=== PATIENT | male | born 1955 | race Caucasian/White ===

== ENCOUNTER 2017-10-01 14:08 | Outpatient (CLI) | payer MEDICARE, MEDICAID | END 2017-10-01 14:09 | disposition critical access hospital (66) | LOC: EMS 14:08 | PROVIDERS: ATTEND Surgery | DX: R10.9 Unspecified abdominal pain (principal) | CPT/HCPCS: A0425; A0429 ==

== ENCOUNTER 2017-10-01 14:46 | Emergency (ER) | payer MEDICARE, MEDICAID ==
--- NOTE | 2017-10-01 14:58 | ED Physician Documentation ---
PD HPI ABD PAIN - Stated complaint Stated Complaint: ABD PX - Chief complaint Chief Complaint: Abd Pain - History obtained from History obtained from: Patient, EMS - History of Present Illness Timing - onset: Enter time (399), Today Timing - duration: Hours Timing - details: Abrupt onset, Still present Quality: Sharp, Fullness/distended, Pain Location: Suprapubic Radiation: Lower back Improved by: Laying still Worsened by: Moving, Breathing, Position, Palpation Associated symptoms: Nausea, Constipation Similar symptoms before: Diagnosis (constipation) Recently seen: Not recently seen - Additional information Additional information: 62 y/o male with a history of MS has developed acute lower abdominal pain and feels he might be obstructed. He cannot have a bowel movement and is only getting out small amounts with urination. Review of Systems Constitutional: denies: Fever Eyes: denies: Decreased vision Ears: denies: Ear pain Nose: denies: Congestion Throat: denies: Sore throat Cardiac: denies: Chest pain / pressure Respiratory: denies: Dyspnea, Cough GI: reports: Abdominal Pain, Nausea, Constipation. denies: Vomiting, Diarrhea : reports: Frequency, Unable to Void. denies: Dysuria Skin: denies: Rash Musculoskeletal: denies: Neck pain, Back pain, Extremity pain PD PAST MEDICAL HISTORY - Past Medical History Neuro: Multiple sclerosis HEENT: Glaucoma Musculoskeletal: Chronic back pain - Past Surgical History Past Surgical History: No - Present Medications Home Medications: Ambulatory Orders Medication Instructions Recorded Confirmed Timolol 0.5% Ophth Drops [Timoptic 1 drops OPTH BID 12/22/13 01/13/14 0.5% Ophth Drops] Ca Cmb No.1/Vit D3/B-6/FA/B12 3 tab PO DAILY 02/24/14 02/24/14 [Vitamin D3 1,000 Unit Tablet] Primapexole 12/23/15 - Allergies Allergies/Adverse Reactions: Allergies Allergy/AdvReac Type Severity Reaction Status Date / Time No Known Drug Allergies Allergy Verified 01/13/14 22:18 - Social History Does the pt smoke?: Yes Smoking Status: Current every day smoker Does the pt drink ETOH?: No Does the pt have substance abuse?: No - Immunizations Immunizations are current?: Yes - POLST Patient has POLST: Yes PD ED PE NORMAL - Vitals Vital signs reviewed: Yes (hypertensive ) - General General: Alert and oriented X 3, No acute distress, Well developed/nourished, Other (Thin appearing male in no distress motionless from the waist down. ) - HEENT HEENT: Atraumatic, PERRL, EOMI - Neck Neck: Supple, no meningeal sign - Respiratory Respiratory: No respiratory distress - Abdomen Abdomen: Soft, Other (There is a firm palpable bladder that is tender and extends to near the umbilicus. ) - Back Back: No CVA TTP, No spinal TTP - Derm Derm: Normal color, Warm and dry, No rash - Extremities Extremities: No deformity, No edema, Other (thin motionless LE. ) - Neuro Neuro: Alert and oriented X 3, Normal speech Eye Opening: Spontaneous Motor: Obeys Commands Verbal: Oriented GCS Score: 15 - Psych Psych: Normal mood, Normal affect Results - Vitals Vitals: Vital Signs - 24 hr 10/01/17 14:48 Temperature 36.4 C L Heart Rate 74 Respiratory 16 Rate Blood Pressure 151/96 H O2 Saturation 95 Oxygen O2 Source Room air - Labs Labs: Laboratory Tests 10/01/17 15:42 Urine Color YELLOW Urine Clarity HAZY Urine pH 6.5 Ur Specific [place] 1.010 Urine Protein NEGATIVE Urine Glucose (UA) NEGATIVE Urine Ketones NEGATIVE Urine Occult Blood SMALL H Urine Nitrite NEGATIVE Urine Bilirubin NEGATIVE Urine Urobilinogen 0.2 (NORMAL) Ur Leukocyte Esterase NEGATIVE Urine RBC 0-5 Urine WBC 0-3 Ur Squamous Epith Cells NONE SEEN Amorphous Sediment Rare Urine Bacteria None Seen Ur Microscopic Review INDICATED Urine Culture Comments NOT INDICATED Procedures - Bedside sono Bedside sono by EMP: with the use of bedside ultrasound the bladder is imaged and is full and tender. PD MEDICAL DECISION MAKING - ED course Complexity details: reviewed old records, reviewed results, re-evaluated patient , considered differential, d/w patient ED course: 62 y/o male with MS has developed acute urinary retention and has relief of pain with placement of a carey catheter. His urine is clear and he is able to get more stool out. He is given an enema with more stool out as well. I have encouraged him to try an enema on a regular basis for reflex evacuation. He will need the carey in for 1-2 weeks and [facility] Departure - Departure Disposition: 01 Home, Self Care Clinical Impression: Acute urinary retention Constipation Qualifiers: Constipation type: unspecified constipation type Qualified Code(s): K59.00 - Constipation, unspecified Condition: Stable Instructions: ED Constipation, ED Retention Urinary Male Follow-Up: Your, doctor at the [place] [Other] Comments: Leave the catheter in place and follow up at the [place] with urology in 1-2 weeks for a voiding trial. Try an enema to train the colon for hydro-distention reflex evacuation.
[2017-10-01 15:45] LABS: BILIRUBIN,URINE NEGATIVE (NEGATIVE); GLUCOSE, URINE (UA) NEGATIVE (NEGATIVE); KETONES,URINE (UA) NEGATIVE (NEGATIVE); LEUKOCYTE ESTERASE, URINE NEGATIVE (NEGATIVE); NITRITE,URINE NEGATIVE (NEGATIVE); OCCULT BLOOD,URINE SMALL (NEGATIVE); PH,URINE 6.5 PH (5.0-7.5); PROTEIN,URINE NEGATIVE (NEGATIVE); UROBILINOGEN,URINE 0.2 (NORMAL) E.U./dL (NORMAL)
[2017-10-01 16:12] LABS: CLARITY,URINE HAZY (CLEAR)
[2017-10-01 16:13] LABS: AMORPHOUS SEDIMENT,UR Rare /LPF; BACTERIA,URINE None Seen /HPF (None Seen); RBC,URINE 0-5 /HPF (0-5); SQUAMOUS EPITHELIAL CELL,UR NONE SEEN (<= Few)
[2017-10-01 16:53] VITALS: BP 113/82
== END 2017-10-01 19:50 | disposition home or self-care (01) ==
LOC: ED 14:46
DX: R33.9 Retention of urine, unspecified (principal); K59.00 Constipation, unspecified; G35 Multiple sclerosis; F17.200 Nicotine dependence, unspecified, uncomplicated
CPT/HCPCS: 51702; 81001; 81003; 87086; 99283; 99284

== ENCOUNTER 2017-10-01 20:00 | Outpatient (CLI) | payer MEDICARE, MEDICAID | END 2017-10-01 20:01 | disposition home or self-care (01) | LOC: EMS 20:00 | PROVIDERS: ATTEND Surgery | DX: K59.00 Constipation, unspecified (principal); R33.9 Retention of urine, unspecified | CPT/HCPCS: A0425; A0429 ==

== ENCOUNTER 2018-09-02 01:25 | Outpatient (CLI) | payer OTHER | END 2018-09-02 01:26 | disposition critical access hospital (66) | LOC: EMS 01:25 | PROVIDERS: ATTEND Surgery | DX: R10.9 Unspecified abdominal pain (principal); M54.9 Dorsalgia, unspecified; Z99.3 Dependence on wheelchair | CPT/HCPCS: A0425; A0429 ==

== ENCOUNTER 2018-09-02 01:44 | Emergency (ER) | payer OTHER ==
[2018-09-02] MEDS ORDERED: SODIUM CHLORIDE 0.9% 1,000 ML IV STA (02:02)
[2018-09-02] MEDS ORDERED: ONDANSETRON 4 MG/2 ML VIAL IVP STA (02:02)
[2018-09-02] MEDS ORDERED: MORPHINE 10 MG/ML VIAL IVP STA (02:02)
[2018-09-02] MEDS ORDERED: IOPAMIDOL-300 100 ML VIAL ONE (02:15)
[2018-09-02 02:16] LABS: BASOPHILS # (AUTO) 0.2 10^3/uL (0.0-0.1); BASOPHILS % (AUTO) 1.1 %; EOSINOPHILS # (AUTO) 0.1 10^3/uL (0.0-0.7); EOSINOPHILS % (AUTO) 0.5 %; HGB - HEMOGLOBIN 16.3 g/dL (14.0-18.0); LYMPHOCYTES # (AUTO) 1.6 10^3/uL (1.5-3.5); LYMPHOCYTES % (AUTO) 9.5 %; MEAN CORPUSCULAR HEMOGLOBIN 30.8 pg (27.0-31.0); MEAN PLATELET VOLUME 8.3 fL (7.4-11.4); MONOCYTES # (AUTO) 0.8 10^3/uL (0.0-1.0); MONOCYTES % (AUTO) 4.7 %; NEUTROPHILS # (AUTO) 14.5 10^3/uL (1.5-6.6); NEUTROPHILS % (AUTO) 84.2 %; PLT - PLATELET COUNT 200 10^3/uL (130-450); RED BLOOD COUNT 5.29 10^6/uL (4.70-6.10); RED CELL DISTRIBUTION WIDTH 14.8 % (12.0-15.0); WHITE BLOOD COUNT 17.2 x10^3/uL (4.8-10.8)
[2018-09-02 02:29] LABS: ALBUMIN 4.2 g/dL (3.2-5.5); ALBUMIN/GLOBULIN RATIO 1.3 (1.0-2.2); CALCIUM 9.2 mg/dL (8.5-10.3); CREATININE 1.1 mg/dL (0.6-1.2); TOTAL PROTEIN 7.5 g/dL (6.7-8.2)
[2018-09-02] MEDS ORDERED: IOPAMIDOL-300 100 ML VIAL IVP ONE (03:06)
--- NOTE | 2018-09-02 03:28 | CT Report ---
Reason: abd pain radiating to back Procedure Date: 09/02/2018 Accession Number: [id number] / [id number] Procedure: CT - Abdomen/Pelvis W CPT Code: FULL RESULT: EXAM: CT ABDOMEN AND PELVIS EXAM DATE: 09/02/2018 03:08 AM. CLINICAL HISTORY: Abd pain radiating to back. COMPARISONS: ABDOMEN/PELVIS W/ 12/23/2015 6:40 PM. TECHNIQUE: Routine helical CT imaging was performed through the abdomen and pelvis. IV contrast: ISOVUE 300 100mL. Enteric contrast: No. Reconstructions: Coronal and sagittal. In accordance with CT protocol optimization, one or more of the following dose reduction techniques were utilized for this exam: automated exposure control, adjustment of mA and/or KV based on patient size, or use of iterative reconstructive technique. FINDINGS: Lung Bases: Stable right lower lobe airspace opacity. No effusion or pneumothorax. Liver: Normal. No masses. Gallbladder/Bile Ducts: Unremarkable. Spleen: Normal. Pancreas: Normal. Adrenal Glands: Normal. Kidneys: Normal. No masses or hydronephrosis. Peritoneal Cavity/Bowel: Normal. No free fluid, free air or adenopathy. No masses or acute inflammatory process. The appendix is well visualized and normal. Pelvic Organs: Normal. The bladder and visualized pelvic organs are within normal limits. 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 Bones: No significant abnormality. Other: None. IMPRESSION: Stable atherosclerotic disease, with stenosis of the distal abdominal aorta and occlusion of the left common iliac artery, with distal reconstitution. No evident etiology for patient's abdominal pain. RADIA
--- NOTE | 2018-09-02 03:54 | ED Physician Documentation ---
PD HPI ABD PAIN - Stated complaint Stated Complaint: ABD PAIN - Chief complaint Chief Complaint: Back Pain - History obtained from History obtained from: Patient - History of Present Illness Timing - onset: How many hours ago (2) Timing - duration: Hours (2) Timing - details: Gradual onset Pain level max: 3 Pain level now: 3 Severity Comments: mild Quality: Cramping Location: Epigastric Radiation: Lower back Improved by: Laying still Worsened by: Eating Associated symptoms: Nausea Review of Systems Ten Systems: 10 systems reviewed and negative Constitutional: reports: Reviewed and negative Eyes: reports: Reviewed and negative Ears: reports: Reviewed and negative Nose: reports: Reviewed and negative Throat: reports: Reviewed and negative Cardiac: reports: Reviewed and negative Respiratory: reports: Reviewed and negative GI: reports: Reviewed and negative : reports: Reviewed and negative Skin: reports: Reviewed and negative Musculoskeletal: reports: Reviewed and negative Neurologic: reports: Reviewed and negative Psychiatric: reports: Reviewed and negative Endocrine: reports: Reviewed and negative Immunocompromised: reports: Reviewed and negative PD PAST MEDICAL HISTORY - Past Medical History HEENT: Glaucoma Musculoskeletal: Chronic back pain Other Past Medical History: Reviewed and not pertinent - Past Surgical History Past Surgical History: No Other past surgical history: Reviewed and not pertinent - Present Medications Home Medications: Ambulatory Orders Medication Instructions Recorded Confirmed Timolol 0.5% Ophth Drops [Timoptic 1 drops OPTH BID 12/22/13 01/13/14 0.5% Ophth Drops] Ca Cmb No.1/Vit D3/B-6/FA/B12 3 tab PO DAILY 02/24/14 02/24/14 [Vitamin D3 1,000 Unit Tablet] Primapexole 12/23/15 - Allergies Allergies/Adverse Reactions: Allergies Allergy/AdvReac Type Severity Reaction Status Date / Time No Known Drug Allergies Allergy Verified 01/13/14 22:18 - Social History Does the pt smoke?: Yes Smoking Status: Current every day smoker Does the pt drink ETOH?: No Does the pt have substance abuse?: No - Family History Family history: reports: Other (Reviewed and not pertinent) - Immunizations Immunizations are current?: Yes - POLST Patient has POLST: Yes PD ED PE NORMAL - Vitals Vital signs reviewed: Yes - General General: Alert and oriented X 3, No acute distress - HEENT HEENT: PERRL - Neck Neck: Supple, no meningeal sign - Cardiac Cardiac: RRR, No murmur - Respiratory Respiratory: Clear bilaterally - Abdomen Abdomen: Normal bowel sounds, Soft, Non tender, Non distended - Derm Derm: Warm and dry - Extremities Extremities: No deformity - Neuro Neuro: Alert and oriented X 3 - Psych Psych: Normal mood, Normal affect Results - Vitals Vitals: Vital Signs - 24 hr 09/02/18 01:47 Temperature 36.2 C L Heart Rate 61 Respiratory 18 Rate Blood Pressure 156/83 H O2 Saturation 98 Oxygen O2 Source Room air - EKG (time done) 0206 Rate: Rate (enter#) (65) Rhythm: NSR [place]: Normal Intervals: Normal OK. No: Prolonged QT QRS: Normal Ischemia: Normal ST segments. No: T wave inversion - Labs Labs: Laboratory Tests 09/02/18 09/02/18 09/02/18 02:05 02:05 02:05 WBC 17.2 H RBC 5.29 Hgb 16.3 Hct 46.5 MCV 88.0 MCH 30.8 MCHC 35.0 RDW 14.8 Plt Count 200 MPV 8.3 Neut # (Auto) 14.5 H Lymph # (Auto) 1.6 [place] # (Auto) 0.8 Eos # (Auto) 0.1 Baso # (Auto) 0.2 H Absolute Nucleated RBC 0.00 Nucleated RBC % 0.0 Sodium 140 Potassium 3.5 Chloride 104 Carbon Dioxide 26 Anion Gap 10.0 BUN 13 Creatinine 1.1 Estimated GFR (MDRD) 67 L Glucose 111 H Calcium 9.2 Total Bilirubin 1.0 AST 59 H ALT 40 Alkaline Phosphatase 103 Troponin I < 0.04 Total Protein 7.5 Albumin 4.2 Globulin 3.3 Albumin/Globulin Ratio 1.3 Lipase 51 - Rads (name of study) CT ABD PELV Radiology: Final report received, See rad report PD MEDICAL DECISION MAKING - ED course Complexity details: reviewed results, re-evaluated patient, considered differential, d/w patient ED course: 63-year-old male with abdominal pain radiating to the back. Labs, EKG, abdominal CT scan were unremarkable for acute etiology. Return precautions reviewed and patient will follow-up with PCP. Departure - Departure Disposition: 01 Home, Self Care Clinical Impression: Abdominal pain Qualifiers: Abdominal location: generalized Qualified Code(s): R10.84 - Generalized abdominal pain Instructions: ED Abdominal Pain Unkn Cause Follow-Up: Tarleton,Humble D, MD [Primary Care Provider] - Comments: Follow-up with PCP within 24 hours. Return with worsening symptoms.
[2018-09-02 04:12] VITALS: BP 119/74
== END 2018-09-02 04:52 | disposition home or self-care (01) ==
LOC: EDUNIT# → ED 01:44
DX: R10.84 Generalized abdominal pain (principal); F17.200 Nicotine dependence, unspecified, uncomplicated
CPT/HCPCS: 36415; 74177; 80053; 83690; 84484; 85025; 93005; 96361; 96374; 99283; Q9967

== ENCOUNTER 2018-09-02 04:56 | Outpatient (CLI) | payer OTHER | END 2018-09-02 04:57 | disposition home or self-care (01) | LOC: EMS 04:56 | PROVIDERS: ATTEND Surgery | DX: Z74.01 Bed confinement status (principal) | CPT/HCPCS: A0425; A0428 ==

== ENCOUNTER 2022-12-11 15:24 | Outpatient (CLI) | payer OTHER | END 2022-12-11 23:59 | disposition critical access hospital (66) | LOC: EMS 15:24 | DX: R10.31 Right lower quadrant pain (principal); R39.89 Other symptoms and signs involving the genitourinary system | CPT/HCPCS: A0425; A0429 ==

== ENCOUNTER 2022-12-11 15:47 | Emergency (ER) | payer OTHER ==
--- NOTE | 2022-12-11 15:54 | ED Physician Documentation ---
PD HPI LOWER EXT INJURY - Stated complaint Stated Complaint: GROIN PX - History obtained from History obtained from: Patient - Additional information Additional information: 67-year-old gentleman with history of MS causing inability to walk for the most part, uses a power chair and has help at home. He has had about 4 weeks of increasing pain of the right groin. It is located inferior to the inguinal ligaments kind of medially up near the insertion of the Gracilis. It is moderate at rest but worse when he moves or when his restless leg syndrome flares up. There is no injury. He is never had anything like this before. PD PAST MEDICAL HISTORY - Past Medical History HEENT: Glaucoma Musculoskeletal: Chronic back pain - Past Surgical History Past Surgical History: No - Present Medications Home Medications: Ambulatory Orders Medication Instructions Recorded Confirmed Timolol 0.5% Ophth Drops [Timoptic 1 drops OPTH BID 12/22/13 01/13/14 0.5% Ophth Drops] Ca Cmb No.1/Vit D3/B-6/FA/B12 3 tab PO DAILY 02/24/14 02/24/14 [Vitamin D3 1,000 Unit Tablet] Primapexole 12/23/15 Ciprofloxacin [Cipro] 250 mg PO Q12H #10 tablet 12/11/22 HYDROcod/ACETAM 5/325 [[place] 5/325] 1 - 2 tab PO Q6H PRN #10 tablet 12/11/22 - Allergies Allergies/Adverse Reactions: Allergies Allergy/AdvReac Type Severity Reaction Status Date / Time No Known Drug Allergies Allergy Verified 01/13/14 22:18 - Social History Does the pt smoke?: Yes Smoking Status: Current every day smoker Does the pt drink ETOH?: No Does the pt have substance abuse?: No - Immunizations Immunizations are current?: Yes - POLST Patient has POLST: Yes PD ED PE NORMAL - Vitals Vital signs reviewed: Yes - General General: Alert and oriented X 3, No acute distress - Abdomen Abdomen: Normal bowel sounds, Soft, Non tender - Back Back: Other (There is focal tenderness of the upper medial thigh near the insertion of the gracilis. No skin breakdown or rash. No hernia mass. Internal and external rotation of the hip itself is relatively nonpainful.) - Neuro Neuro: Alert and oriented X 3, Normal speech Results - Vitals Vitals: Vital Signs - 24 hr 12/11/22 15:51 Temperature 36.9 C Heart Rate 84 Respiratory 16 Rate Blood Pressure 166/106 H O2 Saturation 96 Oxygen O2 Source Room air - Labs Labs: Laboratory Tests 12/11/22 12/11/22 12/11/22 16:07 16:15 16:15 WBC 15.0 H RBC 5.54 Hgb 15.9 Hct 48.4 MCV 87.4 MCH 28.7 MCHC 32.9 RDW 14.3 Plt Count 267 MPV 9.3 Neut # (Auto) 11.9 H Lymph # (Auto) 2.1 [place] # (Auto) 0.8 Eos # (Auto) 0.1 Baso # (Auto) 0.1 Absolute Nucleated RBC 0.00 Nucleated RBC % 0.0 Sodium 136 Potassium 2.8 L Chloride 98 L Carbon Dioxide 30 Anion Gap 8.0 BUN 15 Creatinine 1.2 Estimated GFR (MDRD) 60 L Glucose 99 Calcium 8.8 Urine Color YELLOW Urine Clarity HAZY Urine pH 7.0 Ur Specific [place] 1.010 Urine Protein TRACE Urine Glucose (UA) NEGATIVE Urine Ketones NEGATIVE Urine Occult Blood TRACE-INTA Urine Nitrite POSITIVE H Urine Bilirubin NEGATIVE Urine Urobilinogen 0.2 (NORMAL) Ur Leukocyte Esterase LARGE H Urine RBC 0-5 Urine WBC >25 H Ur Squamous Epith Cells NONE SEEN Urine Bacteria Moderate H Ur Microscopic Review INDICATED Urine Culture Comments INDICATED PD Medical Decision Making - ED course ED course: 67-year-old gentleman who has mobility issues related to multiple sclerosis presents 4 weeks of groin pain that is worse with movements. He is focally tender at the insertion of the gracilis muscle. There is no tenderness over the femoral vascular chair anteriorly. DVT is considered but there is really no swelling in the history and physical is otherwise not consistent with that. Right hip x-ray was negative. Blood work does show an elevated white blood cell count, modest hypokalemia and he does have evidence of a urinary infection. Given the white count this will be treated with antibiotics. I do wonder if the pain sensation might be obfuscated by his MS and the bladder infection may be the primary issue. Close follow-up was advised and potassium was repleted orally here. Departure - Departure Disposition: 01 Home, Self Care Clinical Impression: Hip pain, right Urinary tract infection Qualifiers: Urinary tract infection type: acute cystitis Hematuria presence: without hematuria Qualified Code(s): N30.00 - Acute cystitis without hematuria Condition: Good Record reviewed to determine appropriate education?: Yes Instructions: ED Acute Pain UKO, ED UTI Cystitis Male Prescriptions: Ciprofloxacin [Cipro] 250 mg PO Q12H #10 tablet HYDROcod/ACETAM 5/325 [[place] 5/325] 1 - 2 tab PO Q6H PRN #10 tablet PRN Reason: Pain Comments: You are found today to have a bladder infection with elevated white blood cell count. We are treating this with antibiotics. Also your potassium was low. The pain may or may not be related to these issues, sometimes it is hard to tell in people with multiple sclerosis. That said if the pain does not resolved with the treatment of the urinary infection, please follow-up with your primary care physician for further evaluation and treatment. Return for new or worsening symptoms. We will perform a urine culture and if a resistant organism is identified we will call you to change antibiotics. [facility] [place]. I am prescribing a short course of narcotic pain medication for you. These are potentially dangerous and addictive medications that should be used carefully. These medications may constipate you. Take an [id number] stool softener (docusate) twice daily with plenty of water while taking these medications. If you go 24 hours without a bowel movement, take [id number] miralax, per package instructions. Do not drink or drive while taking these medications. If you received narcotic or sedating medications while in the emergency department, do not drive for 24 hours. Store this medication in a safe, secure place and out of reach of children. It is a violation of federal law to give or sell this medication to another person or to use in a manner other than prescribed. The ED will not refill narcotic prescriptions, including prescriptions lost or stolen. To dispose of unwanted medications: 1. [facility] provides a drop box for medication in pill form only (no liquids) 8:00 am to 4:30 p.m. Friday-Friday in the lobby of the [facility], [address] [place] [address]. Empty pills into ziplock bag before disposal. Call [phone] for information. 2.BackTrack is a free service available to all [facility] residents. Go to [email or web address] Note that many narcotic pain relievers also contain Tylenol/acetaminophen. Please ensure that your total dose of acetaminophen from all sources does not exceed 3 g (3000 mg) per day.
[2022-12-11 16:21] LABS: BASOPHILS # (AUTO) 0.1 10^3/uL (0.0-0.1); BASOPHILS % (AUTO) 0.6 %; EOSINOPHILS # (AUTO) 0.1 10^3/uL (0.0-0.7); EOSINOPHILS % (AUTO) 0.7 %; HCT - HEMATOCRIT 48.4 % (42.0-52.0); HGB - HEMOGLOBIN 15.9 g/dL (14.0-18.0); LYMPHOCYTES # (AUTO) 2.1 10^3/uL (1.5-3.5); LYMPHOCYTES % (AUTO) 13.8 %; MEAN CORPUSCULAR HEMOGLOBIN 28.7 pg (27.0-31.0); MEAN CORPUSCULAR HGB CONC 32.9 g/dL (32.0-36.0); MEAN CORPUSCULAR VOLUME 87.4 fL (80.0-94.0); MEAN PLATELET VOLUME 9.3 fL (7.4-11.4); MONOCYTES # (AUTO) 0.8 10^3/uL (0.0-1.0); MONOCYTES % (AUTO) 5.1 %; NEUTROPHILS # (AUTO) 11.9 10^3/uL (1.5-6.6); NEUTROPHILS % (AUTO) 79.4 %; PLT - PLATELET COUNT 267 10^3/uL (130-450); RED BLOOD COUNT 5.54 10^6/uL (4.70-6.10); RED CELL DISTRIBUTION WIDTH 14.3 % (12.0-15.0)
[2022-12-11 16:22] LABS: BILIRUBIN,URINE NEGATIVE (NEGATIVE); GLUCOSE, URINE (UA) NEGATIVE (NEGATIVE); KETONES,URINE (UA) NEGATIVE (NEGATIVE); LEUKOCYTE ESTERASE, URINE LARGE (NEGATIVE); NITRITE,URINE POSITIVE (NEGATIVE); OCCULT BLOOD,URINE TRACE-INTA (NEGATIVE); PROTEIN,URINE TRACE mg/dL (NEGATIVE); UROBILINOGEN,URINE 0.2 (NORMAL) E.U./dL (NORMAL)
[2022-12-11 16:23] LABS: CLARITY,URINE HAZY (CLEAR)
[2022-12-11 16:30] LABS: CALCIUM 8.8 mg/dL (8.5-10.3); CREATININE 1.2 mg/dL (0.6-1.2); POTASSIUM 2.8 mmol/L (3.5-5.0)
[2022-12-11 16:31] LABS: BACTERIA,URINE Moderate /HPF (None Seen); RBC,URINE 0-5 /HPF (0-5); SQUAMOUS EPITHELIAL CELL,UR NONE SEEN (<= Few); WBC,URINE >25 /HPF (0-3)
--- NOTE | 2022-12-11 16:45 | XRAY Report ---
PROCEDURE: Hip w/Pelvis 2-3V RT INDICATIONS: hip pain TECHNIQUE: AP pelvis with lateral view(s) of the right hip(s). COMPARISON: None. FINDINGS: Bones: No fractures or dislocations. No suspicious bony lesions. Soft tissues: No suspicious soft tissue calcifications or masses. IMPRESSION: No acute bony abnormality. Reviewed by: Karan Oro on 12/11/2022 4:43 PM PDT Approved by: Karan Oro on 12/11/2022 4:43 PM PDT Station ID: [id number]
[2022-12-11] MEDS ORDERED: CIPROFLOXACIN 250 MG TABLET PO STA (16:57)
[2022-12-11] MEDS ORDERED: HYDROcod/ACETAM 5/325 MG TABLET PO STA (16:58)
[2022-12-11] MEDS ORDERED: POTASSIUM BICARB 25 MEQ TABLET PO STA (17:00)
[2022-12-11 21:09] VITALS: BP 205/96
== END 2022-12-11 21:05 | disposition home or self-care (01) ==
LOC: EDUNIT# → ED 15:47
DX: M25.551 Pain in right hip (principal); N30.00 Acute cystitis without hematuria; G35 Multiple sclerosis; E87.6 Hypokalemia; F17.200 Nicotine dependence, unspecified, uncomplicated
CPT/HCPCS: 36415; 73502; 80048; 81001; 85025; 87086; 99283; 99284; A9270; 81003

== ENCOUNTER 2022-12-11 21:21 | Outpatient (CLI) | payer OTHER | END 2022-12-11 21:22 | disposition home or self-care (01) | LOC: EMS 21:21 | PROVIDERS: ATTEND Emergency Medicine | DX: N39.0 Urinary tract infection, site not specified (principal); Z74.01 Bed confinement status; G82.20 Paraplegia, unspecified; G35 Multiple sclerosis | CPT/HCPCS: A0425; A0428 ==

== ENCOUNTER 2022-12-16 15:06 | Emergency (ER) | payer OTHER ==
--- NOTE | 2022-12-16 15:17 | ED Physician Documentation ---
History of Present Illness - Stated complaint Stated Complaint: LEG SWELLING - Additonal information Additional information: 67-year-old male who has a history of multiple sclerosis presents to the emergency department for evaluation of extensive right lower leg/thigh bruising. He reports that he has been having pain on the inner and outer thigh since this morning and his caregiver noticed extensive bruising. He is typically wheelchair dependent but has been in bed for the last several days with no known trauma. This patient was seen in this emergency department 12/11/2021. He was at that time having some pain in his right groin. The x-ray of the hip was negative. B lood work at that time showed leukocytosis and hypokalemia as well as evidence of a UTI. He was started on Cipro. Review of Systems Constitutional: denies: Fever, Chills Skin: reports: Other (Right thigh bruising) Musculoskeletal: reports: Extremity pain Neurologic: reports: Reviewed and negative Psychiatric: reports: Reviewed and negative PD PAST MEDICAL HISTORY - Past Medical History HEENT: Glaucoma Musculoskeletal: Chronic back pain - Past Surgical History Past Surgical History: No - Present Medications Home Medications: Ambulatory Orders Medication Instructions Recorded Confirmed Timolol 0.5% Ophth Drops [Timoptic 1 drops OPTH BID 12/22/13 01/13/14 0.5% Ophth Drops] Ca Cmb No.1/Vit D3/B-6/FA/B12 3 tab PO DAILY 02/24/14 02/24/14 [Vitamin D3 1,000 Unit Tablet] Primapexole 12/23/15 Ciprofloxacin [Cipro] 250 mg PO Q12H #10 tablet 12/11/22 HYDROcod/ACETAM 5/325 [[place] 5/325] 1 - 2 tab PO Q6H PRN #10 tablet 12/11/22 - Allergies Allergies/Adverse Reactions: Allergies Allergy/AdvReac Type Severity Reaction Status Date / Time No Known Drug Allergies Allergy Verified 01/13/14 22:18 - Social History Does the pt smoke?: Yes Smoking Status: Current every day smoker Does the pt drink ETOH?: No Does the pt have substance abuse?: No - Immunizations Immunizations are current?: Yes - POLST Patient has POLST: Yes PD ED PE NORMAL - General General: Alert and oriented X 3, No acute distress - Respiratory Respiratory: No respiratory distress, Clear bilaterally - Abdomen Abdomen: Normal bowel sounds, Soft. No: Non tender - Extremities Extremities: Other (1+ DP pulse. Palpable 1+ femoral pulse. Extensive bruising on the right lateral and inner thigh both tender to touch. A hematoma may be palpable on the inner thigh. 1+ DP pulses bilaterally) Results - Vitals Vitals: Vital Signs - 24 hr 12/16/22 12/16/22 12/16/22 15:14 17:54 18:24 Temperature 36.9 C Heart Rate 83 85 84 Respiratory 19 18 19 Rate Blood Pressure 187/103 H 174/98 H 174/88 H O2 Saturation 97 97 96 Oxygen O2 Source Room air - Labs Labs: Laboratory Tests 12/16/22 12/16/22 12/16/22 15:26 15:26 15:26 WBC 13.1 H RBC 3.84 L Hgb 11.3 L Hct 33.4 L MCV 87.0 MCH 29.4 MCHC 33.8 RDW 14.4 Plt Count 331 MPV 9.4 Neut # (Auto) 10.0 H Lymph # (Auto) 2.1 [place] # (Auto) 0.7 Eos # (Auto) 0.2 Baso # (Auto) 0.1 Absolute Nucleated RBC 0.00 Nucleated RBC % 0.0 PT 11.4 INR 1.1 Sodium 139 Potassium 2.9 L Chloride 102 Carbon Dioxide 30 Anion Gap 7.0 BUN 17 Creatinine 1.1 Estimated GFR (MDRD) 67 L Glucose 123 H Calcium 8.5 Total Bilirubin 0.6 AST 16 ALT 10 Alkaline Phosphatase 111 Total Protein 6.4 L Albumin 3.2 Globulin 3.2 Albumin/Globulin Ratio 1.0 Lipase 114 H Urine Color Urine Clarity Urine pH Ur Specific [place] Urine Protein Urine Glucose (UA) Urine Ketones Urine Occult Blood Urine Nitrite Urine Bilirubin Urine Urobilinogen Ur Leukocyte Esterase Urine RBC Urine WBC Ur Squamous Epith Cells Urine Bacteria Ur Microscopic Review Urine Culture Comments 12/16/22 17:44 WBC RBC Hgb Hct MCV MCH MCHC RDW Plt Count MPV Neut # (Auto) Lymph # (Auto) [place] # (Auto) Eos # (Auto) Baso # (Auto) Absolute Nucleated RBC Nucleated RBC % PT INR Sodium Potassium Chloride Carbon Dioxide Anion Gap BUN Creatinine Estimated GFR (MDRD) Glucose Calcium Total Bilirubin AST ALT Alkaline Phosphatase Total Protein Albumin Globulin Albumin/Globulin Ratio Lipase Urine Color YELLOW Urine Clarity CLOUDY Urine pH 7.5 Ur Specific [place] 1.015 Urine Protein 30 H Urine Glucose (UA) NEGATIVE Urine Ketones NEGATIVE Urine Occult Blood SMALL H Urine Nitrite NEGATIVE Urine Bilirubin NEGATIVE Urine Urobilinogen 0.2 (NORMAL) Ur Leukocyte Esterase LARGE H Urine RBC 6-10 H Urine WBC >25 H Ur Squamous Epith Cells NONE SEEN Urine Bacteria Many H Ur Microscopic Review INDICATED Urine Culture Comments INDICATED - Rads (name of study) right leg US Relevant Findings:: Other (Blood flow seen in the [employer] RE[employer] and SFA. Subcutaneous edema at the inner thigh) CT abd Relevant Findings:: Final report received (Right medial thigh intramuscular hematoma measuring 9.2 cm estimated volume of 140 cc. Right thigh subcutaneous edema. 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 Extensive atherosclerotic plaque. Reconstitution of flow at the right [employer] REPAIRER. Bladder diverticuli. ) PD Medical Decision Making - ED course Complexity details: reviewed results, re-evaluated patient, considered differential, d/w patient ED course: 67-year-old male who has a history of multiple sclerosis and is primarily bedbound presents the emergency department for evaluation of right thigh bruising that was noticed this morning. Incidentally the patient was seen here almost a week ago for pain in the right groin with negative x-ray imaging though labs indicated a UTI. He was started on Cipro. Over the last several days he reports he has not felt well and has not been able to get out of bed but denies any falls trauma bumps or bruises. He is not anticoagulated. On presentation he is alert. His vital signs here in the emergency department have shown modest hypertension but unchanged from previous visits. No fever or tachycardia. The exam of the right leg shows a warm well-perfused leg. He has extensive bruising on the right medial and lateral thigh. He did have a intact pulse on this leg. Subsequently an ultrasound of the leg was completed which showed blood flow in the right [employer] REPAIRER through the proximal mid SFA. I did obtain CBC and electrolytes and per my interpretation I do note mild leukocytosis though this is somewhat improved from our visit a few days ago in which the white count was 16,000. His electrolytes showed a mildly low potassium of 2.9. And a lipase of 114. UA continues to show uti, though he has nto completed the cipro. would delay abx change given lack of fevers and improved leukocytosis Given the unclear source of the bruising in the right leg as well as the elevated lipase I did obtain a CT of the abdomen which extended down through the right thigh. There were no acute intra-abdominal findings. Specifically no findings of pancreatitis. There was findings made of a very large right medial thigh hematoma measuring 9.2 cm with an estimated volume of 140 cc. There was an incidental finding of occlusion of the left common, external and internal iliac artery with plaque. This is a chronic finding and does not need intervention today. There is also finding of bladder diverticuli with probable bladder outlet obstruction though the patient is not obstructed and able to adequately void into a urinal. At this time the cause for his right thigh hematoma is not clear though he is hemodynamically stable. He does not have a vascularly compromised leg. I discussed the CT imaging findings with the patient as well as his labs. He is advised to follow closely with his PCP. We discussed the usual emergent return precautions which would include increasing thigh size, increased pain any fevers feeling faint or severe worsening pain in the right leg Departure - Departure Disposition: 01 Home, Self Care Clinical Impression: Hematoma of right thigh Qualifiers: Encounter type: initial encounter Qualified Code(s): S70.11XA - Contusion of right thigh, initial encounter Condition: Stable Record reviewed to determine appropriate education?: Yes Instructions: ED Hematoma Comments: Rodrigo you have bruising in your right thigh. Testing today has shown that you have a large hematoma within the thigh. It is not clear why this hematoma or bruise within the muscle developed. You have good blood flow through the arteries in the leg. Over the next several weeks is important to simply watch your right thigh. Be observant for increased pain, any fevers. This hematoma will take several weeks to dissipate. Return to the ER if worse. There was some incidental findings made on the CT scan today that showed atherosclerotic plaque of the left common iliac arteries. This is an incidental finding but should be discussed with your primary doctor. They may elect to do additional ultrasound or CT imaging. They may also elect to make a referral for you to vascular surgery. Discharge Date/Time: 12/16/22 18:26
[2022-12-16 15:49] LABS: BASOPHILS # (AUTO) 0.1 10^3/uL (0.0-0.1); BASOPHILS % (AUTO) 0.7 %; EOSINOPHILS # (AUTO) 0.2 10^3/uL (0.0-0.7); EOSINOPHILS % (AUTO) 1.4 %; HCT - HEMATOCRIT 33.4 % (42.0-52.0); HGB - HEMOGLOBIN 11.3 g/dL (14.0-18.0); LYMPHOCYTES # (AUTO) 2.1 10^3/uL (1.5-3.5); MEAN CORPUSCULAR HEMOGLOBIN 29.4 pg (27.0-31.0); MEAN CORPUSCULAR HGB CONC 33.8 g/dL (32.0-36.0); MEAN PLATELET VOLUME 9.4 fL (7.4-11.4); MONOCYTES # (AUTO) 0.7 10^3/uL (0.0-1.0); MONOCYTES % (AUTO) 5.3 %; NEUTROPHILS % (AUTO) 76.1 %; PLT - PLATELET COUNT 331 10^3/uL (130-450); RED BLOOD COUNT 3.84 10^6/uL (4.70-6.10); RED CELL DISTRIBUTION WIDTH 14.4 % (12.0-15.0); WHITE BLOOD COUNT 13.1 x10^3/uL (4.8-10.8)
[2022-12-16 15:55] LABS: ALBUMIN 3.2 g/dL (3.2-5.5); BILIRUBIN,TOTAL 0.6 mg/dL (0.2-1.0); CALCIUM 8.5 mg/dL (8.5-10.3); CREATININE 1.1 mg/dL (0.6-1.2); POTASSIUM 2.9 mmol/L (3.5-5.0); TOTAL PROTEIN 6.4 g/dL (6.7-8.2)
[2022-12-16 16:00] LABS: INR 1.1 (0.8-1.2); PT - PROTHROMBIN TIME 11.4 secs (9.9-12.6)
[2022-12-16] MEDS ORDERED: iohexoL-300 100 ML VIAL ONE (16:23)
[2022-12-16] MEDS ORDERED: iohexoL-300 100 ML VIAL IVP ONE (16:43)
[2022-12-16] MEDS ORDERED: POTASSIUM BICARB 25 MEQ TABLET PO STA (17:00)
--- NOTE | 2022-12-16 17:19 | Ultrasound Report ---
PROCEDURE: Ext Limited Non Vascular INDICATIONS: extensive bruising; ? hematoma/bleed TECHNIQUE: Real-time scanning was performed of the right inner thigh, with image documentation. COMPARISON: CT abdomen pelvis 12/16/2022, 09/02/2018. FINDINGS: Right inner thigh subcutaneous edema. There is a blood flow in the [employer] MACHINE OPERATOR and proximal/mid SFA. Triphasic waveforms. IMPRESSION: Blood flow is seen in the [employer] MACHINE OPERATOR and SFA. Subcutaneous edema at the inner thigh. Reviewed by: Marshall Delacruz MD on 12/16/2022 5:17 PM PDT Approved by: Marshall Delacruz MD on 12/16/2022 5:17 PM PDT Station ID: [id number]
--- NOTE | 2022-12-16 17:36 | CT Report ---
PROCEDURE: ABDOMEN/PELVIS W INDICATIONS: elevated lipase; right leg bruising CONTRAST: 100ml omnipaque 300 TECHNIQUE: After the administration of intravenous contrast, 5 mm thick sections acquired from the diaphragms to the symphysis. 5 mm thick coronal and sagittal reformats were acquired. For radiation dose reducti on, the following was used: automated exposure control, adjustment of mA and/or kV according to juan luis ent size. COMPARISON: Same-day targeted ultrasound. CT abdomen pelvis 09/02/2018. FINDINGS: Image quality: Excellent. Lung bases and heart: Right basilar atelectasis. No pleural effusion. Liver: No focal lesion. Gallbladder and biliary tree: No radiopaque stones or wall thickening. No biliary dilation. Spleen: No splenomegaly. Pancreas: No pancreatic ductal dilation. Adrenals: No adrenal nodule. Kidneys and ureters: Atrophic right kidney, worsened compared to 2019. No hydronephrosis. Bowel and peritoneum: No bowel distension. Thickening at the proximal duodenum with calcification, (), unchanged since 2019. No pathologic free fluid. Normal appendix. Lymph nodes: No central or retroperitoneal adenopathy. Vessels: No aneurysm. Extensive calcified and noncalcified atherosclerotic plaque. The left common fe moral artery is occluded. Previously there was collateral flow in the distal left common iliac artery and external/internal iliac arteries which is no longer seen. There is reconstitution of flow in the left [employer]. PELVIS Reproductive organs: Prominent prostate gland. Bladder: Irregularity at the dome of the bladder, (01/06), similar to 2019. Possible this could repres ent a small diverticulum. Difficult to exclude bladder neoplasm. Small posterior lateral bladder dive rticuli. Pelvic lymph nodes: No pelvic adenopathy by size criteria. Bones: No aggressive osseous abnormality. Other: No significant ventral or inguinal hernia. Asymmetric soft tissue density intramuscular at the medial left thigh, (). This measures approximately 9.2 x 6.5 cm, (32). Estimated volume of 14 0 cc. Subcutaneous edema at the left thigh. Buttocks injection granulomas. IMPRESSION: 1. Suspect right medial thigh intramuscular hematoma measuring approximately 9.2 cm. Estimated volume of 140 cc. Right thigh subcutaneous edema. 2. Complete occlusion of the left common, external, internal iliac arteries. Extensive atheroscleroti c plaque. Reconstitution of flow at the right [employer]. 3. Bladder diverticuli. Probable bladder outlet obstruction. Thickening or diverticulum at the bladde r dome, unchanged. Difficult to exclude lateral neoplasm. This could be further evaluated with cystos copy. 4. Right renal atrophy. Reviewed by: Marshall Delacruz MD on 12/16/2022 5:34 PM PDT Approved by: Marshall Delacruz MD on 12/16/2022 5:34 PM PDT Station ID: [id number]
[2022-12-16 17:57] LABS: BILIRUBIN,URINE NEGATIVE (NEGATIVE); GLUCOSE, URINE (UA) NEGATIVE (NEGATIVE); KETONES,URINE (UA) NEGATIVE (NEGATIVE); LEUKOCYTE ESTERASE, URINE LARGE (NEGATIVE); NITRITE,URINE NEGATIVE (NEGATIVE); OCCULT BLOOD,URINE SMALL (NEGATIVE); PH,URINE 7.5 PH (5.0-7.5); PROTEIN,URINE 30 mg/dL (NEGATIVE); UROBILINOGEN,URINE 0.2 (NORMAL) E.U./dL (NORMAL)
[2022-12-16 17:58] LABS: CLARITY,URINE CLOUDY (CLEAR)
[2022-12-16 18:10] LABS: BACTERIA,URINE Many /HPF (None Seen); SQUAMOUS EPITHELIAL CELL,UR NONE SEEN (<= Few); WBC,URINE >25 /HPF (0-3)
[2022-12-16 18:27] VITALS: BP 174/88
== END 2022-12-16 18:26 | disposition home or self-care (01) ==
LOC: EDUNIT# → ED 15:06
DX: S70.11XA Contusion of right thigh, initial encounter (principal); X58.XXXA Exposure to other specified factors, initial encounter; F17.200 Nicotine dependence, unspecified, uncomplicated
CPT/HCPCS: 36415; 74177; 76882; 80053; 81001; 83690; 85025; 85610; 87086; 99284; A9270; Q9967; 81003

== ENCOUNTER 2023-02-17 15:08 | Outpatient (CLI) | payer OTHER ==
--- NOTE | 2023-02-17 17:38 | Ultrasound Report ---
PROCEDURE: Retroperitoneal INDICATIONS: MS,NEUROMUSCULAR DYSFUNCTION OF BLADDER TECHNIQUE: Real-time scanning was performed of the retroperitoneal organs, with image documentation. COMPARISON: CT of abdomen and pelvis dated 12/16/2022. FINDINGS: Kidneys: Kidneys are normal in size. Right kidney measures 6.6 cm long; left kidney measures 8.6 cm long. Right renal cortical thickness is 0.5 cm; left renal cortical thickness is 0.6 cm. There is p rominence of left renal collecting system measures up to 2.1 x 2.2 x 1.5 cm in size. No right-sided h ydronephrosis. No gross solid appearing renal lesion. Bladder: Pre-void bladder volume is 280.79 mL. Patient was unable to void. Pre-void images demonstra te no intraluminal masses or stones. On pre-void images, bilateral ureteral jets are noted with colo r Doppler interrogation. (Of note, ureteral jets may not be detectable in up to 25% of cases due to insufficient differences in specific gravity between ureteral and bladder urine). Miscellaneous: No free abdominal fluid. Prostate gland measures 3.2 x 2.5 x 3.6 cm in size. Hypoech oic focus with irregular contour is noted in the prostate gland measures 1.5 x 1.2 x 2.1 cm in size. IMPRESSION: 1. Atrophic appearing right kidney. Slightly atrophic appearing left kidney. Suggestion of mild left- sided hydronephrosis. No obstructing stone is seen. No right-sided hydronephrosis. No gross solid desiree earing renal lesion. 2. No gross abnormality is seen in distended urinary bladder. Patient was unable to void. 3. Hypoechoic focus within the prostate gland as described above. Prostate neoplasm cannot be exclude d. Urological correlation and follow-up is recommended. Reviewed by: Eric Kimball MD on 02/17/2023 5:37 PM PDT Approved by: Eric Kimball MD on 02/17/2023 5:37 PM PDT Station ID: [id number]
== END 2023-02-17 15:09 | disposition home or self-care (01) ==
LOC: DI 15:08
PROVIDERS: ATTEND Physical Medicine & Rehabilitation
DX: G35 Multiple sclerosis (principal); R93.89 Abnormal findings on diagnostic imaging of other specified body structures

== ENCOUNTER 2023-12-14 15:56 | Outpatient (CLI) | payer OTHER | END 2023-12-14 23:59 | disposition critical access hospital (66) | LOC: EMS 15:56 | DX: R06.02 Shortness of breath (principal); R45.1 Restlessness and agitation; R23.0 Cyanosis; R06.2 Wheezing; R06.82 Tachypnea, not elsewhere classified; R53.1 Weakness | CPT/HCPCS: A0425; A0427 ==

== ENCOUNTER 2023-12-14 16:13 | Inpatient (IN) | payer OTHER ==
--- NOTE | 2023-12-14 16:26 | ED Physician Documentation ---
History of Present Illness - Stated complaint Stated Complaint: RESP FAILURE - Chief complaint Chief Complaint: Resp - History obtained from History obtained from: EMS - Additonal information Additional information: 68-year-old male with limited medical history available brought in by EMS for respiratory failure. They state that he has a history of paraplegia and MS. Heavy smoker. Had been coughing for the last several days at home. Increasing work of breathing today. Has a caregiver at home but EMS states that his caregiver did not have much medical history about him. EMS tried to get of him a nebulizer treatment because he was wheezing, however went into full respiratory failure, therefore was intubated. Patient was then brought into the emergency department after being intubated. His medication [facility] on them. As far as EMS is aware the patient is full code. Review of Systems Unable to obtain: Intubated PD PAST MEDICAL HISTORY - Past Medical History Past Medical History: Yes Respiratory: COPD HEENT: Glaucoma Musculoskeletal: Chronic back pain Other Past Medical History: MS, paraplegia, wheelchair bound - Past Surgical History Past Surgical History: No - Present Medications Home Medications: Ambulatory Orders Medication Instructions Recorded Confirmed Timolol 0.5% Ophth Drops [Timoptic 1 drops OPTH BID 12/22/13 01/13/14 0.5% Ophth Drops] Ca Cmb No.1/Vit D3/B-6/FA/B12 3 tab PO DAILY 02/24/14 02/24/14 [Vitamin D3 1,000 Unit Tablet] Primapexole 12/23/15 Ciprofloxacin [Cipro] 250 mg PO Q12H #10 tablet 12/11/22 HYDROcod/ACETAM 5/325 [[place] 5/325] 1 - 2 tab PO Q6H PRN #10 tablet 12/11/22 - Allergies Allergies/Adverse Reactions: Allergies Allergy/AdvReac Type Severity Reaction Status Date / Time No Known Drug Allergies Allergy Verified 12/14/23 16:34 - Living Situation Living Arrangement: reports: At home - Social History Does the pt smoke?: Yes Smoking Status: Current every day smoker Does the pt drink ETOH?: No Does the pt have substance abuse?: No - Immunizations Immunizations are current?: Yes - POLST Patient has POLST: Yes PD ED PE NORMAL - Vitals Vital signs reviewed: Yes - General General: No acute distress, Other (Thin, frail male) - HEENT HEENT: Atraumatic, PERRL, Moist mucous membranes - Neck Neck: Supple, no meningeal sign - Cardiac Cardiac: Other (Tachycardic) - Respiratory Respiratory: Other (Equal breath sounds bilaterally with bagging) - Abdomen Abdomen: Soft, Non tender, Non distended - Derm Derm: Warm and dry - Extremities Extremities: No edema - Neuro Neuro: Other (Unresponsive, intubated) Results - Vitals Vitals: Vital Signs - 24 hr 12/14/23 12/14/23 12/14/23 16:20 16:32 17:21 Temperature 36.6 C Heart Rate 120 H 133 H 112 H Respiratory 14 Rate Blood Pressure 131/97 H O2 Saturation 85 L 12/14/23 12/14/23 12/14/23 17:46 17:52 18:13 Temperature Heart Rate 116 H 113 H 104 H Respiratory 26 H 26 H 26 H Rate Blood Pressure 88/56 L 86/68 L O2 Saturation 90 L 84 L 12/14/23 12/14/23 12/14/23 19:00 19:06 19:15 Temperature Heart Rate 109 H 114 H 111 H Respiratory 26 H 26 H Rate Blood Pressure 98/71 108/90 H O2 Saturation 93 94 12/14/23 12/14/23 12/14/23 19:30 19:45 20:00 Temperature Heart Rate 107 H 113 H 117 H Respiratory 26 H 26 H 26 H Rate Blood Pressure 92/70 103/77 110/74 O2 Saturation 94 94 95 12/14/23 20:32 Temperature Heart Rate 117 H Respiratory 26 H Rate Blood Pressure 110/74 O2 Saturation 96 Oxygen O2 Source Mechanical ventilator - Labs Labs: Laboratory Tests 12/14/23 12/14/23 12/14/23 16:28 16:35 16:35 WBC 24.5 H RBC 4.82 Hgb 13.7 L Hct 44.7 MCV 92.7 MCH 28.4 MCHC 30.6 L RDW 14.6 Plt Count 457 H MPV 9.5 Neut # (Auto) Not Reportable Lymph # (Auto) Not Reportable [place] # (Auto) Not Reportable Eos # (Auto) Not Reportable Baso # (Auto) Not Reportable Absolute Nucleated RBC Not Reportable Total Counted 100 Band Neuts % (Manual) 0 Abnorm Lymph % (Manual) 0 Nucleated RBC % Not Reportable Neutrophils # (Manual) 19.4 H Lymphocytes # (Manual) 2.9 Monocytes # (Manual) 2.2 H Eosinophils # (Manual) 0.0 Basophils # (Manual) 0.0 Differential Comment MANUAL DIFFERENTIAL Platelet Estimate INCREASED (>450,000) Platelet Morphology NORMAL APPEARANCE RBC Morph Micro Appear NORMAL APPEARANCE PT 17.4 H INR 1.6 H APTT 22.9 L Bld Gas Analysis Time Sample Site ABG pH ABG pCO2 ABG pO2 ABG HCO3 ABG Total CO2 ABG O2 Saturation ABG Base Excess Isma Test Respiration Rate O2 Delivery Device Vent Mode FiO2 Tidal Volume PEEP Sodium Potassium Chloride Carbon Dioxide Anion Gap BUN Creatinine Estimated GFR (MDRD) Glucose Lactic Acid Calcium Total Bilirubin AST ALT Alkaline Phosphatase Total Protein Albumin Globulin Albumin/Globulin Ratio Lipase Urine Color YELLOW Urine Clarity HAZY Urine pH 5.5 Ur Specific [place] 1.025 Urine Protein 30 H Urine Glucose (UA) NEGATIVE Urine Ketones NEGATIVE Urine Occult Blood NEGATIVE Urine Nitrite NEGATIVE Urine Bilirubin SMALL H Urine Urobilinogen 1 (NORMAL) Ur Leukocyte Esterase NEGATIVE Urine RBC 0-5 Urine WBC 0-3 Ur Squamous Epith Cells MOD Squamous H Urine Bacteria Few Ur Microscopic Review INDICATED Urine Culture Comments NOT INDICATED Nasal Adenovirus (PCR) Nasal B. parapertussis DNA (PCR) Nasal Coronavir 229E PCR Nasal Coronavir HKU1 PCR Nasal Coronavir NL63 PCR Nasal Coronavir OC43 PCR Nasal Enterovir/Rhinovir PCR Nasal Influenza B PCR Nasal Influenza A PCR Nasal Parainfluen 1 PCR Nasal Parainfluen 2 PCR Nasal Parainfluen 3 PCR Nasal Parainfluen 4 PCR Nasal RSV (PCR) Nasal B.pertussis DNA PCR Nasal C.pneumoniae (PCR) Kali Human Metapneumo PCR Nasal M.pneumoniae (PCR) Nasal SARS-CoV-2 (PCR) 12/14/23 12/14/23 12/14/23 16:35 16:35 16:40 WBC RBC Hgb Hct MCV MCH MCHC RDW Plt Count MPV Neut # (Auto) Lymph # (Auto) [place] # (Auto) Eos # (Auto) Baso # (Auto) Absolute Nucleated RBC Total Counted Band Neuts % (Manual) Abnorm Lymph % (Manual) Nucleated RBC % Neutrophils # (Manual) Lymphocytes # (Manual) Monocytes # (Manual) Eosinophils # (Manual) Basophils # (Manual) Differential Comment Platelet Estimate Platelet Morphology RBC Morph Micro Appear PT INR APTT Bld Gas Analysis Time 1650 Sample Site LEFT RADIAL ABG pH 7.04 L* ABG pCO2 62 H* ABG pO2 60 L ABG HCO3 16.3 L ABG Total CO2 18.2 L ABG O2 Saturation 76 L* ABG Base Excess -14.9 L Isma Test POSITIVE Respiration Rate 16 O2 Delivery Device VENTILATOR Vent Mode ASSIST/CONTROL FiO2 100.00 Tidal Volume 375 PEEP 5 Sodium 134 L Potassium 4.0 Chloride 97 L Carbon Dioxide 18 L Anion Gap 19.0 H BUN 34 H Creatinine 1.7 H Estimated GFR (MDRD) 40 L Glucose 196 H Lactic Acid 7.6 H* Calcium 8.6 Total Bilirubin 0.5 AST 17 ALT 12 Alkaline Phosphatase 136 H Total Protein 6.1 L Albumin 3.0 L Globulin 3.1 Albumin/Globulin Ratio 1.0 Lipase < 10 L Urine Color Urine Clarity Urine pH Ur Specific [place] Urine Protein Urine Glucose (UA) Urine Ketones Urine Occult Blood Urine Nitrite Urine Bilirubin Urine Urobilinogen Ur Leukocyte Esterase Urine RBC Urine WBC Ur Squamous Epith Cells Urine Bacteria Ur Microscopic Review Urine Culture Comments Nasal Adenovirus (PCR) Nasal B. parapertussis DNA (PCR) Nasal Coronavir 229E PCR Nasal Coronavir HKU1 PCR Nasal Coronavir NL63 PCR Nasal Coronavir OC43 PCR Nasal Enterovir/Rhinovir PCR Nasal Influenza B PCR Nasal Influenza A PCR Nasal Parainfluen 1 PCR Nasal Parainfluen 2 PCR Nasal Parainfluen 3 PCR Nasal Parainfluen 4 PCR Nasal RSV (PCR) Nasal B.pertussis DNA PCR Nasal C.pneumoniae (PCR) [place]ali Human Metapneumo PCR Nasal M.pneumoniae (PCR) Nasal SARS-CoV-2 (PCR) 12/14/23 12/14/23 12/14/23 17:47 19:48 20:35 WBC RBC Hgb Hct MCV MCH MCHC RDW Plt Count MPV Neut # (Auto) Lymph # (Auto) [place] # (Auto) Eos # (Auto) Baso # (Auto) Absolute Nucleated RBC Total Counted Band Neuts % (Manual) Abnorm Lymph % (Manual) Nucleated RBC % Neutrophils # (Manual) Lymphocytes # (Manual) Monocytes # (Manual) Eosinophils # (Manual) Basophils # (Manual) Differential Comment Platelet Estimate Platelet Morphology RBC Morph Micro Appear PT INR APTT Bld Gas Analysis Time 2039 Sample Site LEFT RADIAL ABG pH 7.19 L* ABG pCO2 35 ABG pO2 78 L ABG HCO3 13.0 L ABG Total CO2 14.1 L ABG O2 Saturation 92 L ABG Base Excess -14.2 L Isma Test POSITIVE Respiration Rate O2 Delivery Device VENTILATOR Vent Mode ASSIST/CONTROL FiO2 100.00 Tidal Volume PEEP 8 Sodium Potassium Chloride Carbon Dioxide Anion Gap BUN Creatinine Estimated GFR (MDRD) Glucose Lactic Acid 5.3 H* Calcium Total Bilirubin AST ALT Alkaline Phosphatase Total Protein Albumin Globulin Albumin/Globulin Ratio Lipase Urine Color Urine Clarity Urine pH Ur Specific [place] Urine Protein Urine Glucose (UA) Urine Ketones Urine Occult Blood Urine Nitrite Urine Bilirubin Urine Urobilinogen Ur Leukocyte Esterase Urine RBC Urine WBC Ur Squamous Epith Cells Urine Bacteria Ur Microscopic Review Urine Culture Comments Nasal Adenovirus (PCR) NOT DETECTED Nasal B. parapertussis DNA (PCR) NOT DETECTED Nasal Coronavir 229E PCR NOT DETECTED Nasal Coronavir HKU1 PCR NOT DETECTED Nasal Coronavir NL63 PCR NOT DETECTED Nasal Coronavir OC43 PCR NOT DETECTED Nasal Enterovir/Rhinovir PCR NOT DETECTED Nasal Influenza B PCR NOT DETECTED Nasal Influenza A PCR NOT DETECTED Nasal Parainfluen 1 PCR NOT DETECTED Nasal Parainfluen 2 PCR NOT DETECTED Nasal Parainfluen 3 PCR NOT DETECTED Nasal Parainfluen 4 PCR NOT DETECTED Nasal RSV (PCR) NOT DETECTED Nasal B.pertussis DNA PCR NOT DETECTED Nasal C.pneumoniae (PCR) NOT DETECTED [place] Human Metapneumo PCR NOT DETECTED Nasal M.pneumoniae (PCR) NOT DETECTED Nasal SARS-CoV-2 (PCR) NOT DETECTED - Rads (name of study) Chest x-ray Relevant Findings:: Final report received, See rad report cxr Relevant Findings:: Final report received, See rad report cxr 3 Relevant Findings:: Final report received, See rad report Procedures - Central Line - Major Central Line Preparation: Unable to obtain consent (intubated), Ultrasound used, Sterile prep and drape Central line location: Right IJ Central line type: Triple lumen Central line aftercare: Chlorhexidine disc placed, Secured, Placement confirmed, No pneumothorax, No complications, Bundle checklist complete, Pt tolerated well PD Medical Decision Making - ED course Complexity details: reviewed results, re-evaluated patient, considered differential, d/w websphere consultant ED course: 68-year-old male with a history of MS, presents with respiratory failure. Has diffuse appearing pneumonia on chest x-ray. Given IV Levaquin. Blood cultures drawn. Lactate 7.4. Given several liters of IV fluid. A right-sided IJ central line was placed. The 6.5 ET tube placed by EMS was changed to a 7.5 ET tube. Levophed was started. Repeat lactate is down to 5. ABG improving from 7.04-7.18. He is making urine. Appears to be overall improving. His last note here from an admission for respiratory failure in 2016 states DNR. [facility] but [facility] are available. His PCP is in [place] with the [facility] but they are not available either. There is no POLST form available with the patient. His caregiver never showed up in the emergency department and no contact info was given by EMS. I attempted to contact the next of kin listed on his demographics. The phone number just rang and rang. There was no way to leave a message. Unclear exactly what his CODE STATUS is at this point. He was given IV Solu-Medrol as well as a breathing treatment. He does smoke. Patient appears septic with respiratory failure secondary to pneumonia. Discussed the case with the nighttime hospitalist who accepts for ICU admission. Patient is in serious condition. This document was made in part using voice recognition software. While efforts are made to proofread this document, sound alike and grammatical errors may occur. After admission to the ICU, [facility]. Appears that the patient is likely DNR. - Critical Care Time(min): 70 Time Includes: Direct patient care, Reassess patient, Document care, Coordinate care, Medical consult, See progress note Data interpretation: See progress note Procedures included in critical care time: See progress note Procedures excluded from critical care time: Central IV, See progress note - Sepsis Event Sepsis Onset Date: 12/14/23 Sepsis Onset Time: 17:00 Current Stage of Sepsis: Severe sepsis Initial Hypotension: Not hypotensive Possible source of Sepsis: Pulmonary Mental/Cognitive Status: Other (intubated) Capillary refill: Less than 2 seconds Peripheral Pulse Strength: 1+ Faint Peripheral Pulse Location: Radial Bedside ultrasound performed: No Departure - Departure Disposition: 66 [facility] DC/Xfer Clinical Impression: Multiple sclerosis, Hypoxia Pneumonia Qualifiers: Pneumonia type: due to unspecified organism Laterality: unspecified laterality Lung location: unspecified part of lung Qualified Code(s): J18.9 - Pneumonia, unspecified organism Sepsis Qualifiers: Sepsis type: sepsis due to unspecified organism Sepsis acute organ dysfunction status: unspecified Qualified Code(s): A41.9 - Sepsis, unspecified organism Respiratory failure Qualifiers: Chronicity: unspecified Respiratory failure complication: hypoxia Qualified Code(s): J96.91 - Respiratory failure, unspecified with hypoxia Condition: Serious
[2023-12-14] MEDS: DEXMEDETOMIDINE 400 MCG/100 ML 100 ML IV PRN (16:30)
[2023-12-14 16:43] LABS: BASOPHILS % (AUTO) 0.4 %; EOSINOPHILS % (AUTO) 0.1 %; HCT - HEMATOCRIT 44.7 % (42.0-52.0); HGB - HEMOGLOBIN 13.7 g/dL (14.0-18.0); LYMPHOCYTES % (AUTO) 12.7 %; MEAN CORPUSCULAR HEMOGLOBIN 28.4 pg (27.0-31.0); MEAN CORPUSCULAR HGB CONC 30.6 g/dL (32.0-36.0); MEAN CORPUSCULAR VOLUME 92.7 fL (80.0-94.0); MEAN PLATELET VOLUME 9.5 fL (7.4-11.4); MONOCYTES % (AUTO) 5.3 %; NEUTROPHILS % (AUTO) 79.1 %; PLT - PLATELET COUNT 457 10^3/uL (130-450); RED BLOOD COUNT 4.82 10^6/uL (4.70-6.10); RED CELL DISTRIBUTION WIDTH 14.6 % (12.0-15.0); WHITE BLOOD COUNT 24.5 x10^3/uL (4.8-10.8)
[2023-12-14 16:45] LABS: ABNORMAL LYMPHS % (MANUAL) 0 %; BAND NEUTROPHILS % (MANUAL) 0 %
[2023-12-14 16:52] LABS: ABG BASE EXCESS -14.9 mmol/L (-2.0-3.0); ABG HCO3 16.3 mmol/L (22.0-26.0); ABG PO2 60 mmHg (80-100); ABG TCO2 18.2 MMOL/L (21.0-29.0); ALLEN TEST POSITIVE
[2023-12-14 16:53] LABS: ABG MODE OF VENTILATION ASSIST/CONTROL; ABG RESPIRATORY RATE 16 b/min
[2023-12-14 16:56] LABS: ABG PH 7.04 (7.35-7.45)
[2023-12-14 16:57] LABS: ABG OXYGEN SATURATION 76 % (94-98); ABG PCO2 62 mmHg (34-45)
[2023-12-14 16:59] LABS: PARTIAL THROMBOPLASTIN TIME 22.9 secs (24.9-33.3)
--- NOTE | 2023-12-14 16:59 | XRAY Report ---
PROCEDURE: Chest for Line Placement INDICATIONS: s/p intubation TECHNIQUE: One view of the chest was acquired. COMPARISON: None. FINDINGS: Surgical changes and devices: Endotracheal tube with tip 7.5 cm above the tracey. Enteric tube with tip and side-port below the diaphragm.. Lungs and pleura: Bilateral diffuse pulmonary opacities, right greater than left. Mediastinum: Mediastinal contours appear normal. Heart size is mildly enlarged. Bones and chest wall: No suspicious bony lesions. Overlying soft tissues appear unremarkable. IMPRESSION: 1.Endotracheal tube with tip 7.5 cm above the tracey. Enteric tube with tip and side-port below the d iaphragm. 2.Diffuse bilateral pulmonary opacities, right greater than left. Findings are concerning for infecti on versus ARDS. Reviewed by: Enrique Jordan MD on 12/14/2023 3:58 PM AKCARMINA Approved by: Enrique Jordan MD on 12/14/2023 3:58 PM AKCARMINA Station ID: [id number]
[2023-12-14 17:01] LABS: ALKALINE PHOSPHATASE 136 IU/L (42-121); ALT ALANINE AMINOTRANSFERASE 12 IU/L (10-60); AST ASPARTATE AMINOTRANSFERASE 17 IU/L (10-42); BILIRUBIN,TOTAL 0.5 mg/dL (0.2-1.0); BUN - BLOOD UREA NITROGEN 34 mg/dL (6-20); CALCIUM 8.6 mg/dL (8.5-10.3); CARBON DIOXIDE - CO2 18 mmol/L (21-32); CHLORIDE 97 mmol/L (101-111); CREATININE 1.7 mg/dL (0.6-1.3); GFR - MDRD 40 (>89); GLUCOSE 196 mg/dL (74-104); LIPASE < 10 U/L (11-82); SODIUM 134 mmol/L (135-145); TOTAL PROTEIN 6.1 g/dL (6.4-8.9)
[2023-12-14 17:02] LABS: LACTIC ACID, VENOUS 7.6 mmol/L (0.5-2.2)
[2023-12-14 17:04] LABS: INR 1.6 (0.8-1.2); PT - PROTHROMBIN TIME 17.4 secs (9.9-12.6)
[2023-12-14 17:05] LABS: DIFFERENTIAL COMMENT MANUAL DIFFERENTIAL; LYMPHOCYTES # (MANUAL) 2.9 10^3/uL (1.5-3.5); LYMPHOCYTES % (MANUAL) 12 %; MONOCYTES # (MANUAL) 2.2 10^3/uL (0.0-1.0); NEUTROPHILS # (MANUAL) 19.4 10^3/uL (1.5-6.6); PLATELET ESTIMATE, MANUAL INCREASED (>450,000) (NORMAL); PLATELET MORPHOLOGY NORMAL APPEARANCE (NORMAL); RBC MORPHOLOGY (MULTIPLE) NORMAL APPEARANCE (NORMAL)
[2023-12-14 17:28] LABS: BILIRUBIN,URINE SMALL (NEGATIVE); GLUCOSE, URINE (UA) NEGATIVE (NEGATIVE); KETONES,URINE (UA) NEGATIVE (NEGATIVE); LEUKOCYTE ESTERASE, URINE NEGATIVE (NEGATIVE); NITRITE,URINE NEGATIVE (NEGATIVE); OCCULT BLOOD,URINE NEGATIVE (NEGATIVE); PH,URINE 5.5 PH (5.0-7.5); PROTEIN,URINE 30 mg/dL (NEGATIVE); UROBILINOGEN,URINE 1 (NORMAL) E.U./dL (NORMAL)
[2023-12-14 17:30] LABS: CLARITY,URINE HAZY (CLEAR)
[2023-12-14 17:38] LABS: BACTERIA,URINE Few /HPF (None Seen); RBC,URINE 0-5 /HPF (0-5); SQUAMOUS EPITHELIAL CELL,UR MOD Squamous (<= Few); WBC,URINE 0-3 /HPF (0-3)
[2023-12-14] MEDS: IPRATROPIUM/ALBUTEROL 3 ML NEB INH STA (17:45)
[2023-12-14] MEDS: SODIUM CHLORIDE 0.9% 1,000 ML IV STA ×4 (18:01→19:52)
[2023-12-14] MEDS: methylPREDNISolone SUCCINATE 125 MG/2 ML VIAL IVP STA ×2 (18:04→18:10)
--- NOTE | 2023-12-14 18:10 | XRAY Report ---
PROCEDURE: Chest for Line Placement INDICATIONS: ETT exchanged TECHNIQUE: One view of the chest was acquired. COMPARISON: 12/14/2023. FINDINGS: Surgical changes and devices: Endotracheal tube with tip projecting 4.8 cm below the tracey. Enteric tube with tip and side-port below the diaphragm. Lungs and pleura: Redemonstration of diffuse opacities involving the bilateral lungs Mediastinum: Mediastinal contours appear normal. Heart size is normal. Bones and chest wall: No suspicious bony lesions. Overlying soft tissues appear unremarkable. IMPRESSION: Endotracheal tube with tip 4.8 cm below the tracey. Reinsertion of bilateral pulmonary opacities. Reviewed by: Enrique Jordan MD on 12/14/2023 5:09 PM JERROD Approved by: Enrique Jordan MD on 12/14/2023 5:09 PM JERROD Station ID: [id number]
[2023-12-14] MEDS: levoFLOXacin 750 MG/150 ML 750 MG/150 ML BAG IV STA (18:29)
[2023-12-14] MEDS: SODIUM CHLORIDE 0.9% 1,000 ML IV ONE (19:00)
[2023-12-14 19:08] LABS: B. PARAPERTUSSIS- RESP PCR PAN NOT DETECTED; B. PERTUSSIS- RESP PCR PANEL NOT DETECTED; C. PNEUMONIAE- RESP PCR PANEL NOT DETECTED; CORONAVIRUS 229E-RESP PCR NOT DETECTED; CORONAVIRUS HKU1-RESP PCR NOT DETECTED; CORONAVIRUS NL63-RESP PCR NOT DETECTED; CORONAVIRUS OC43-RESP PCR NOT DETECTED; HUMAN METAPNEUMOVIRUS NOT DETECTED; INFLUENZA A- RESP PCR PANEL NOT DETECTED; INFLUENZA B - RESP PCR PANEL NOT DETECTED; M. PNEUMONIAE- RESP PCR PANEL NOT DETECTED; PARAINFLUENZA VIRUS 1 NOT DETECTED; PARAINFLUENZA VIRUS 2 NOT DETECTED; PARAINFLUENZA VIRUS 3 NOT DETECTED; PARAINFLUENZA VIRUS 4 NOT DETECTED; RHINOVIRUS/ENTEROVIRUS NOT DETECTED; RSV- RESP PCR PANEL NOT DETECTED; SARS-CoV-2 -RESP PCR PANEL NOT DETECTED
--- NOTE | 2023-12-14 19:26 | XRAY Report ---
PROCEDURE: Chest for Line Placement INDICATIONS: R sided IJ TECHNIQUE: One view of the chest was acquired. COMPARISON: 12/14/2023. FINDINGS: Surgical changes and devices: Right central venous catheter with tip projecting over the superior ve na cava. Endotracheal tube with tip 6 cm above the tracey. Nasogastric tube with tip and side-port be low the diaphragm.. Lungs and pleura: Redemonstration of bilateral pulmonary opacities Mediastinum: Mediastinal contours appear normal. Heart size is normal. Bones and chest wall: No suspicious bony lesions. Overlying soft tissues appear unremarkable. IMPRESSION: Lines and tubes as above. Reviewed by: Enrique Jordan MD on 12/14/2023 6:24 PM JERROD Approved by: Enriuqe Jordan MD on 12/14/2023 6:24 PM JERROD Station ID: [id number]
[2023-12-14] MEDS: NOREPINEPHRINE/0.9 % NS 8 MG/250 ML BAG IV ONE (19:36)
[2023-12-14 20:20] LABS: LACTIC ACID, VENOUS 5.3 mmol/L (0.5-2.2)
[2023-12-14 20:41] LABS: ABG PCO2 35 mmHg (34-45); ABG PO2 78 mmHg (80-100)
[2023-12-14 20:42] LABS: ABG BASE EXCESS -14.2 mmol/L (-2.0-3.0); ABG OXYGEN SATURATION 92 % (94-98); ABG TCO2 14.1 MMOL/L (21.0-29.0); ALLEN TEST POSITIVE
[2023-12-14 20:44] LABS: ABG MODE OF VENTILATION ASSIST/CONTROL
[2023-12-14 20:50] LABS: ABG PH 7.19 (7.35-7.45)
[2023-12-14] MEDS ORDERED: ALBUTEROL NEB 2.5 MG/3 ML INH PRN (20:54)
[2023-12-14] MEDS ORDERED: IPRATROPIUM 0.2 MG/ML NEB INH PRN (20:54)
[2023-12-14] MEDS ORDERED: ONDANSETRON 4 MG/2 ML VIAL IVP PRN (20:54)
[2023-12-14] MEDS ORDERED: MORPHINE 2 MG/ML CARPUJECT IVP PRN (20:54)
[2023-12-14] MEDS: PROPOFOL 1000 MG/100 ML 1,000 MG/100 ML BOTTLE IV STA (21:09)
--- NOTE | 2023-12-14 21:10 | HISTORY & PHYSICAL EXAMINATION ---
Chief Complaint - Chief Complaint Chief Complaint: Acute hypoxic respiratory failure History of Present Illness - Admitted From Admitted From:: Home - History Obtained From Records Reviewed: Yes History obtained from: ER MD and EMS Exam Limitations: Patient is on mechanical ventilation - History of Present Illness HPI Comment/Other: 68-year-old male with limited medical history available brought in by EMS for re spiratory failure. They state that he has a history of paraplegia and MS. Heavy smoker. Had been coughing for the last several days at home. Increasing work of breathing today. Has a caregiver at home but EMS states that his caregiver did not have much medical history about him. EMS tried to get of him a nebulizer treatment because he was wheezing, however went into full respiratory failure, therefore was intubated. Patient was then brought into the emergency department after being intubated. [facility]. History obtained via review or records and discussion with Dr Miranda as patient is on mechanical ventilation, he is wheel chair bound secondary to paraplegia and MS History - Past Medical History Respiratory: reports: COPD HEENT: reports: Glaucoma Musculoskeletal: reports: Chronic back pain MRSA Hx?: Yes Other Past Medical History: MS, paraplegia, wheelchair bound - Family & Social History Living arrangement: At home Meds/Allgy - Home Medications Home Medications: Ambulatory Orders Medication Instructions Recorded Confirmed Timolol 0.5% Ophth Drops [Timoptic 1 drops OPTH BID 12/22/13 01/13/14 0.5% Ophth Drops] Ca Cmb No.1/Vit D3/B-6/FA/B12 3 tab PO DAILY 02/24/14 02/24/14 [Vitamin D3 1,000 Unit Tablet] Primapexole 12/23/15 Ciprofloxacin [Cipro] 250 mg PO Q12H #10 tablet 12/11/22 HYDROcod/ACETAM 5/325 [[place] 5/325] 1 - 2 tab PO Q6H PRN #10 tablet 12/11/22 - Allergies Allergies/Adverse Reactions: Allergies Allergy/AdvReac Type Severity Reaction Status Date / Time No Known Drug Allergies Allergy Verified 12/14/23 16:34 Review of Systems - Constitutional Constitutional: reports: Other (Unable to obtain as patient is on mechanical ventilation) Exam - Vital Signs Vital Signs: Vital Signs x48h Temp Pulse Resp BP Pulse Ox 12/14/23 20:58 113 H 26 H 121/73 97 12/14/23 20:32 117 H 26 H 110/74 96 12/14/23 20:00 117 H 26 H 110/74 95 12/14/23 19:45 113 H 26 H 103/77 94 12/14/23 19:30 107 H 26 H 92/70 94 12/14/23 19:15 111 H 26 H 108/90 H 94 12/14/23 19:06 114 H 12/14/23 19:00 109 H 26 H 98/71 93 12/14/23 18:13 104 H 26 H 86/68 L 84 L 12/14/23 17:52 113 H 26 H 88/56 L 90 L 12/14/23 17:46 116 H 26 H 12/14/23 17:21 112 H 12/14/23 16:32 36.6 C 133 H 14 131/97 H 85 L 12/14/23 16:20 120 H - Physical Exam General Appearance: positive: No acute distress, Other (Intubated) Cardiovascular: positive: Regular rate & rhythm, Tachycardia Abdomen: positive: Non-tender Neurologic/Psychiatric: positive: Other (Intubated) Sepsis Event Note (H) - Evaluation Current Stage of Sepsis: Sepsis Conclusion/Plan - Problem List (1) Pneumonia Conclusion/Plan: 1. Sepsis 2. YARELI 3. Acute Pneumonia 4. Hx of Paraplegia wheel chair bound 5. Multiple Sclerosis 6. Acute Hypoxic respiratory Failure Recommendations Admit to icu Patient inubated in the field IVF IV Levaquin Follow up cultures duonebs oprn repeat labs in am DVT prophylaxis Patient is critically ill and prognosis is guarded Full code as unable to get his code status, ER tried calling the person on chart in charge, no answer, laboratory animal care veterinarian no available, [place] pcp not reachable, to retry in am Qualifiers: (2) Respiratory failure Qualifiers: Chronicity: unspecified Respiratory failure complication: hypoxia Qualified Code(s): J96.91 - Respiratory failure, unspecified with hypoxia (3) Sepsis Qualifiers: Sepsis type: sepsis due to unspecified organism Sepsis acute organ dysfunction status: unspecified Qualified Code(s): A41.9 - Sepsis, unspecified organism - Lab Results Fish Bones: 12/14/23 16:35 12/14/23 16:35 - Diagnostic Imaging Results Diagnostic Imaging Results: positive: Final report reviewed
[2023-12-14] MEDS: SODIUM CHLORIDE 0.9% 1,000 ML IV SCH (22:23)
[2023-12-14] MEDS: SODIUM CHLORIDE FLUSH 0.9% 10 ML SYRINGE IVP PRN (22:24)
[2023-12-14 23:26] LABS: ABG PCO2 37 mmHg (34-45); ABG PH 7.22 (7.35-7.45); ABG PO2 93 mmHg (80-100)
[2023-12-14 23:27] LABS: ABG OXYGEN SATURATION 95 % (94-98); ALLEN TEST POSITIVE
[2023-12-14 23:30] LABS: ABG RESPIRATORY RATE 26 b/min
[2023-12-14 23:38] LABS: LACTIC ACID, VENOUS 3.8 mmol/L (0.5-2.2)
[2023-12-15] MEDS ORDERED: POTASSIUM CHLORIDE 20 MEQ/15 ML UDC PO ONE (00:11)
[2023-12-15] MEDS ORDERED: POTASSIUM CHLORIDE 20 MEQ TABLET PO ONE (00:11)
[2023-12-15] MEDS ORDERED: POTASSIUM CHLOR 20 MEQ/100 ML 20 MEQ/100 ML BAG IV ONE (00:11)
[2023-12-15] MEDS ORDERED: MAGNESIUM SULFATE 2 GRAM 2 GM/50 ML BAG IV ONE (00:11)
[2023-12-15] MEDS: levoFLOXacin 750 MG/150 ML 750 MG/150 ML BAG IV SCH (00:14)
[2023-12-15] MEDS: SODIUM CHLORIDE 0.9% 1,000 ML IV STA (00:39)
[2023-12-15] MEDS ORDERED: MAGNESIUM OXIDE 400 MG TABLET PO SCH (01:00)
[2023-12-15] MEDS: ethyl alcohoL 62% SWAB AMPULE NAS SCH (01:23)
[2023-12-15] MEDS: SODIUM CHLORIDE FLUSH 0.9% 10 ML SYRINGE IVP SCH (01:23)
[2023-12-15 03:18] LABS: LACTIC ACID, VENOUS 2.9 mmol/L (0.5-2.2)
[2023-12-15 05:54] LABS: BASOPHILS # (AUTO) 0.1 10^3/uL (0.0-0.1); BASOPHILS % (AUTO) 0.2 %; EOSINOPHILS % (AUTO) 0.1 %; HCT - HEMATOCRIT 39.5 % (42.0-52.0); HGB - HEMOGLOBIN 12.5 g/dL (14.0-18.0); LYMPHOCYTES # (AUTO) 1.4 10^3/uL (1.5-3.5); LYMPHOCYTES % (AUTO) 3.8 %; MEAN CORPUSCULAR HEMOGLOBIN 28.3 pg (27.0-31.0); MEAN CORPUSCULAR HGB CONC 31.6 g/dL (32.0-36.0); MEAN CORPUSCULAR VOLUME 89.6 fL (80.0-94.0); MEAN PLATELET VOLUME 9.6 fL (7.4-11.4); MONOCYTES # (AUTO) 1.1 10^3/uL (0.0-1.0); MONOCYTES % (AUTO) 2.9 %; NEUTROPHILS # (AUTO) 33.8 10^3/uL (1.5-6.6); NEUTROPHILS % (AUTO) 91.6 %; PLT - PLATELET COUNT 335 10^3/uL (130-450); RED BLOOD COUNT 4.41 10^6/uL (4.70-6.10); RED CELL DISTRIBUTION WIDTH 14.4 % (12.0-15.0)
[2023-12-15 05:58] LABS: WHITE BLOOD COUNT 36.8 x10^3/uL (4.8-10.8)
[2023-12-15 06:17] LABS: LACTIC ACID, VENOUS 2.5 mmol/L (0.5-2.2)
[2023-12-15 06:20] LABS: ALBUMIN 2.6 g/dL (3.2-5.5); BILIRUBIN,TOTAL 0.5 mg/dL (0.2-1.0); CALCIUM 7.6 mg/dL (8.5-10.3); CREATININE 1.7 mg/dL (0.6-1.3); POTASSIUM 4.1 mmol/L (3.5-4.5); TOTAL PROTEIN 5.1 g/dL (6.4-8.9)
[2023-12-15 06:32] LABS: DIFFERENTIAL COMMENT MANUAL=AUTO DIFF; PLATELET ESTIMATE, MANUAL INCREASED (>450,000) (NORMAL); PLATELET MORPHOLOGY RARE GIANT (NORMAL); RBC MORPHOLOGY (MULTIPLE) NORMAL APPEARANCE (NORMAL)
[2023-12-15] MEDS: SODIUM CHLORIDE 0.9% 1,000 ML IV ONE (06:48)
[2023-12-15] MEDS: PANTOPRAZOLE 40 MG VIAL IVP SCH (06:48)
[2023-12-15 07:38] LABS: ABG PCO2 33 mmHg (34-45); ABG PH 7.25 (7.35-7.45)
[2023-12-15 07:39] LABS: ABG BASE EXCESS -12.3 mmol/L (-2.0-3.0); ABG HCO3 13.8 mmol/L (22.0-26.0); ABG MODE OF VENTILATION ASSIST/CONTROL; ABG PO2 53 mmHg (80-100); ABG RESPIRATORY RATE 16 b/min; ABG TCO2 14.8 MMOL/L (21.0-29.0); ALLEN TEST POSITIVE
[2023-12-15 07:42] LABS: ABG OXYGEN SATURATION 82 % (94-98)
[2023-12-15] MEDS: ENOXAPARIN 40 MG/0.4 ML SYRINGE SUBQ SCH (08:06)
[2023-12-15] MEDS ORDERED: levoFLOXacin 750 MG/150 ML 750 MG/150 ML BAG IV SCH (10:56)
[2023-12-15] MEDS: DOXYCYCLINE INJ 100 MG in SODIUM CHLORIDE 0.9% MINIBAG 100 ML IV SCH (12:08)
[2023-12-15] MEDS: PIPERACILLIN/TAZOBACTAM 2.25 GM in SODIUM CHLORIDE 0.9% MINIBAG 100 ML IV SCH (12:18)
[2023-12-15] MEDS: VANCOMYCIN INJ 1.5 GM in SODIUM CHLORIDE 0.9% 500 ML IV STA (13:00)
[2023-12-15] MEDS: PROPOFOL 1000 MG/100 ML 1,000 MG/100 ML BOTTLE IV SCH (14:08)
[2023-12-15] MEDS: NOREPINEPHRINE/0.9 % NS 8 MG/250 ML BAG IV SCH (14:39)
[2023-12-15 15:37] LABS: CALCIUM, IONIZED 0.99 mmol/L (1.15-1.33)
[2023-12-15 15:39] LABS: VBG PH 7.18 (7.31-7.41)
[2023-12-15] MEDS: CALCIUM GLUCONATE IN NS 0.9% 2,000 MG/100 ML BAG IV ONE (15:58)
[2023-12-15 16:02] LABS: MAGNESIUM 1.7 mg/dL (1.7-2.3)
[2023-12-15 16:07] LABS: PHOSPHORUS 7.4 mg/dL (2.5-5.0)
[2023-12-15] MEDS ORDERED: CALCIUM CHLORIDE 2,000 MG in SODIUM CHLORIDE 0.9% 100ML 100 ML IV ONE (16:30)
[2023-12-15] MEDS: MAGNESIUM SULFATE 2 GRAM 2 GM/50 ML BAG IV ONE (16:30)
[2023-12-15] MEDS: ASPIRIN 325 MG TABLET PO SCH (18:50)
[2023-12-15 19:11] LABS: CALCIUM, IONIZED 1.07 mmol/L (1.15-1.33); HCT - HEMATOCRIT 37.2 % (42.0-52.0); HGB - HEMOGLOBIN 11.7 g/dL (14.0-18.0); MEAN CORPUSCULAR HEMOGLOBIN 28.7 pg (27.0-31.0); MEAN CORPUSCULAR HGB CONC 31.5 g/dL (32.0-36.0); MEAN CORPUSCULAR VOLUME 91.2 fL (80.0-94.0); MEAN PLATELET VOLUME 9.8 fL (7.4-11.4); RED BLOOD COUNT 4.08 10^6/uL (4.70-6.10); RED CELL DISTRIBUTION WIDTH 14.9 % (12.0-15.0); VBG PH 7.206 (7.31-7.41)
[2023-12-15 19:19] LABS: PARTIAL THROMBOPLASTIN TIME 38.4 secs (24.9-33.3)
[2023-12-15 19:23] LABS: INR 2.7 (0.8-1.2); PT - PROTHROMBIN TIME 28.3 secs (9.9-12.6)
[2023-12-15 19:24] LABS: CREATININE 2.3 mg/dL (0.6-1.3); POTASSIUM 5.1 mmol/L (3.5-4.5)
[2023-12-15] MEDS: CALCIUM GLUC 1,000MG/50ML-NACL 1,000 MG/50 ML BAG IV ONE (20:25)
--- NOTE | 2023-12-15 22:28 | PROVIDER PROGRESS NOTE ---
Assessment/Plan - Problem List (1) Acute hypoxemic respiratory failure Assessment/Plan: Etiology of acute hypoxemic respiratory failure is not clear but most likely related to an aspiration event. It is not clear at this time the patient has ARDS but it is highly likely. Patient has bilateral opacities on x-ray with a PaO2/FiO2 ratio of less than 300 mmHg. Await echo cardiogram to evaluate for cardiac reason for lung changes. Does appear that patient has had a myocardial infarction most likely related to stress from his underlying illness. Plan: Continue supportive care with mechanical ventilation. Patient is critically ill and continues to require artificial life support for respiratory support. Initially today, patient required 100% FiO2 to maintain an oxygen saturation greater than 88%. Oxygen saturations been weaned to 40%. Recommend decreasing the PEEP by 1 cm of water every 2-4 hours while maintaining an oxygen saturation greater than 92%. Recommend not changing the PEEP if FiO2 has to be increased to more than 45%. Current ventilator settings: Mode assist-control, rate 16, tidal volume 400 mL PEEP 14 cmH2O (2) Aspiration pneumonia Assessment/Plan: Patient most likely had an aspiration event at some point that is resulted in severe acute hypoxia respiratory failure. Continue empiric antibiotic coverage with Zosyn, doxycycline and vancomycin. (3) YARELI (acute kidney injury) Assessment/Plan: Acute kidney injury is most likely related to his underlying septic shock. Continue to monitor urine output. Avoid nephrotoxic agents. Continue to monitor I's and O's. (4) Septic shock Assessment/Plan: Patient is critically ill and currently requiring artificial life support with pressor agents to maintain mean arterial blood pressure greater than 60. Continue norepinephrine and wean as tolerated. (5) NSTEMI (non-ST elevated myocardial infarction) Assessment/Plan: High-sensitivity troponin performed today was 6430. Patient is anticoagulated with an INR of 2.7. Recommend initiating treatment with aspirin. Patient is currently receiving 325 mg daily. An echocardiogram was performed today and the report is pending. Recommend continuing to monitor high-sensitivity troponin. (6) Multiple sclerosis Assessment/Plan: Mr. Shin has chronic severe multiple sclerosis and currently cannot walk. Continue to monitor weakness and multiple sclerosis. (7) Protein calorie malnutrition Assessment/Plan: Initiate tube feeding as tolerated. (8) Goals of care, counseling/discussion Assessment/Plan: Mr. Shin has an advanced directive and a copy of the directive is in his room. Goals of care were discussed with his brother today. His brother has DURABLE POWER OF AMBULATORY SERVICE REPRESENTATIVE with regard to the patient's health. After some discussion, Mr. Shin's brother stated that he did not feel his brother would want chest compressions, defibrillation or ACLS medications in the event of a cardiopulmonary arrest. He plans on discussing goals of care with other family members and getting back to us with regard to future care plans. Critical care time: I spent 45 minutes at the patient's bedside adjusting the ventilator, reviewing his chart, writing orders, and discussing goals of care with family. - Current Meds Current Meds: Current Medications Generic Name Dose Route Start Last Admin Trade Name Freq PRN Reason Stop Dose Admin Alcohol 1 amp 12/15/23 02:00 12/15/23 20:25 Ethyl Alcohol 62% Swab Ampule RAJINDER 1 amp BID TITO Administration Aspirin 325 mg 12/15/23 19:00 12/15/23 18:50 Aspirin 325 Mg Tablet PO 325 mg DAILYWM TITO Administration Enoxaparin Sodium 40 mg 12/15/23 09:00 12/15/23 08:06 Enoxaparin 40 Mg/0.4 Ml Syringe SUBQ 40 mg DAILY TITO Administration Dexmedetomidine/Sodium Chloride 100 mls @ 3 mls/hr 12/14/23 16:22 12/14/23 21:13 Precedex Premix IV 0 mcg/kg/hr .[id number] PRN 0 mls/hr Agitation Titration Protocol 0.2 MCG/KG/HR Sodium Chloride 1,000 mls @ 100 mls/hr 12/14/23 21:00 12/15/23 20:25 Normal Saline 0.9% IV 100 mls/hr .Q10H TITO Administration Piperacillin Sod/Tazobactam 100 mls @ 200 mls/hr 12/15/23 12:00 12/15/23 17:33 Sod 2.25 gm/ Sodium Chloride IV Infused Q6H TITO Infusion Doxycycline Hyclate 100 mg/ 100 mls @ 100 mls/hr 12/15/23 12:00 12/15/23 21:25 Sodium Chloride IV Infused BID TITO Infusion Propofol 1,000 mg in 100 mls @ 3.63 mls/hr 12/15/23 14:00 12/15/23 22:10 Diprivan IV 30 mcg/kg/min .[id number] TITO 10.89 mls/hr Administration Protocol 10 MCG/KG/MIN NOREPINEPHRINE/0.9 % NS 8 mg in 250 mls @ 15 mls/hr 12/15/23 15:00 12/15/23 18:06 Levophed 8 Mg/250-0.9% Nacl IV 4 mcg/min .[id number] TITO 7.5 mls/hr Titration Protocol 8 MCG/MIN Pantoprazole Sodium 40 mg 12/15/23 07:00 12/15/23 06:48 Pantoprazole 40 Mg Vial IVP 40 mg QDAC TITO Administration Sodium Chloride 10 ml 12/15/23 01:00 12/15/23 15:59 Sodium Chloride Flush 0.9% 10 Ml Syringe IVP 10 ml 0100,0900,1700 TITO Administration Sodium Chloride 10 ml 12/14/23 20:54 12/15/23 08:07 Sodium Chloride Flush 0.9% 10 Ml Syringe IVP 30 ml PRN PRN Administration NEEDED PER PROVIDER ORDERS - Lab Result Fish Bone Diagrams: 12/15/23 18:55 12/15/23 18:55 - Additional Planning My Orders: My Active Orders 12/15/23 10:42 Code Status [OTHERS] Routine 12/15/23 12:00 Doxycycline Inj [Vibramycin Inj] 100 mg Sodium Chloride 0.9% Minibag [Normal S armani 0.9% Minibag] 100 ml IV BID Piperacillin/Tazobactam [Zosyn] 2.25 gm Sodium Chloride 0.9% Minibag [Normal Saline 0.9% Minibag] 100 ml IV Q6H 12/15/23 13:08 Initiate ICU Electrolyte Prot. [RC] QSHIFT 12/15/23 14:00 Propofol 1000 mg/100 ml [Diprivan] 1,000 mg in 100 ml IV 10 mcg/kg/min 12/15/23 15:00 Norepinephrine/0.9 % Ns [Levophed 8 mg/250-0.9% NaCl] 8 mg in 250 ml IV 8 mcg/min 12/15/23 19:00 Aspirin [Max] 325 mg PO DAILYWM 12/15/23 19:45 NonViolent Restraint(s) Q24H 12/16/23 05:00 CBC W/O DIFF (HEMOGRAM) [HEME] Routine COMPREHENSIVE METABOLIC PANEL [CHEM] Routine LACTIC ACID, VENOUS [CHEM] Routine PT WITH INR [COAG] Routine PTT [PARTIAL THROMBOPLASTIN TIME] [COAG] Routine TROPONIN I HIGH SENSITIVITY [CHEM] Routine 12/16/23 06:00 Chest 1V [XR] Routine 12/16/23 12:00 VANCOMYCIN RANDOM [CHEM] Timed Subjective - Subjective Patient Reports: Other (Intubated and sedated.) Objective Vital Signs: Vital Signs - 24 hr 12/15/23 12/15/23 12/15/23 00:05 00:45 01:15 Temperature 36.1 C L 36.4 C L Heart Rate 98 Heart Rate [ 94 94 Monitoring electrodes] Respiratory 26 H 26 H Rate Blood Pressure 91/70 96/72 [Right Brachial artery] O2 Saturation 93 96 12/15/23 12/15/23 12/15/23 02:11 03:00 04:12 Temperature 36.4 C L 36.7 C Heart Rate 109 H Heart Rate [ 99 100 Monitoring electrodes] Respiratory 26 H 26 H Rate Blood Pressure 109/66 113/86 H [Right Brachial artery] O2 Saturation 100 100 12/15/23 12/15/23 12/15/23 04:31 05:00 05:38 Temperature Heart Rate 118 H Heart Rate [ 104 H 106 H Monitoring electrodes] Respiratory 26 H 26 H Rate Blood Pressure 105/76 122/78 [Right Brachial artery] O2 Saturation 98 100 12/15/23 12/15/23 12/15/23 06:25 07:09 07:44 Temperature 36.9 C Heart Rate 115 H Heart Rate [ 121 H 114 H Monitoring electrodes] Respiratory 26 H 26 H Rate Blood Pressure 117/82 H 107/79 [Right Brachial artery] O2 Saturation 96 96 12/15/23 12/15/23 12/15/23 08:00 09:00 09:39 Temperature 36.7 C Heart Rate 118 H Heart Rate [ 120 H 121 H Monitoring electrodes] Respiratory 26 H 26 H Rate Blood Pressure 103/76 90/70 [Right Brachial artery] O2 Saturation 88 L 89 L 12/15/23 12/15/23 12/15/23 10:00 11:00 11:48 Temperature Heart Rate 111 H Heart Rate [ 117 H 113 H Monitoring electrodes] Respiratory 27 H 26 H Rate Blood Pressure 103/70 110/64 [Right Brachial artery] O2 Saturation 97 88 L 12/15/23 12/15/23 12/15/23 12:00 13:00 13:56 Temperature 36.9 C Heart Rate 107 H Heart Rate [ 112 H 109 H Monitoring electrodes] Respiratory 29 H 28 H Rate Blood Pressure 104/89 H 87/65 L [Right Brachial artery] O2 Saturation 99 100 12/15/23 12/15/23 12/15/23 14:00 15:00 16:00 Temperature 37.0 C Heart Rate Heart Rate [ 107 H 108 H 112 H Monitoring electrodes] Respiratory 19 20 16 Rate Blood Pressure 72/56 L 93/65 97/71 [Right Brachial artery] O2 Saturation 90 L 92 94 12/15/23 12/15/23 12/15/23 16:38 17:00 18:00 Temperature Heart Rate 113 H Heart Rate [ 112 H 105 H Monitoring electrodes] Respiratory 16 16 Rate Blood Pressure 103/70 76/54 L [Right Brachial artery] O2 Saturation 94 95 12/15/23 12/15/23 12/15/23 18:14 19:00 19:22 Temperature Heart Rate 109 H 109 H Heart Rate [ 103 H Monitoring electrodes] Respiratory 16 Rate Blood Pressure 98/73 [Right Brachial artery] O2 Saturation 96 12/15/23 12/15/23 12/15/23 20:00 21:00 22:00 Temperature 37.3 C Heart Rate Heart Rate [ 107 H 107 H 108 H Monitoring electrodes] Respiratory 29 H 31 H 30 H Rate Blood Pressure 102/72 99/72 108/72 [Right Brachial artery] O2 Saturation 94 95 95 Oxygen O2 Source Mechanical ventilator I&O (Last 24 Hrs): Intake and Output Totals x24h 12/13/23 12/14/23 12/15/23 23:59 23:59 23:59 Intake Total 4228.589 4524.541 Output Total 50 299 Balance 4178.589 4225.541 General: No acute distress, Other (Sedated.) HEENT: Atraumatic Neck: No JVD Lymphatic: no adenopathy Cardiovascular: Other (Positive S1-S2 no extra heart sounds.) Respiratory: Other (Fair air exchange in all lung caicedo. Coarse breath sounds. Positive diffuse wheezing. No crackles.) Abdomen: Other (Soft nontender nondistended positive bowel sounds) Extremities: Other (No cyanosis.) Skin: No rashes - Results Results: Laboratory Results WBC 31.0 x10^3/uL (4.8-10.8) H 12/15/23 18:55 RBC 4.08 10^6/uL (4.70-6.10) L 12/15/23 18:55 Hgb 11.7 g/dL (14.0-18.0) L 12/15/23 18:55 Hct 37.2 % (42.0-52.0) L 12/15/23 18:55 MCV 91.2 fL (80.0-94.0) 12/15/23 18:55 MCH 28.7 pg (27.0-31.0) 12/15/23 18:55 MCHC 31.5 g/dL (32.0-36.0) L 12/15/23 18:55 RDW 14.9 % (12.0-15.0) 12/15/23 18:55 Plt Count 288 10^3/uL (130-450) 12/15/23 18:55 MPV 9.8 fL (7.4-11.4) 12/15/23 18:55 Neut # (Auto) 33.8 10^3/uL (1.5-6.6) H 12/15/23 05:15 Lymph # (Auto) 1.4 10^3/uL (1.5-3.5) L 12/15/23 05:15 Hartley # (Auto) 1.1 10^3/uL (0.0-1.0) H 12/15/23 05:15 Eos # (Auto) 0.0 10^3/uL (0.0-0.7) 12/15/23 05:15 Baso # (Auto) 0.1 10^3/uL (0.0-0.1) 12/15/23 05:15 Absolute Nucleated RBC 0.00 x10^3/uL 12/15/23 05:15 Total Counted 100 12/14/23 16:35 Band Neuts % (Manual) Not Reportable 12/15/23 05:15 Abnorm Lymph % (Manual) Not Reportable 12/15/23 05:15 Nucleated RBC % 0.0 /100WBC 12/15/23 05:15 Neutrophils # (Manual) Not Reportable 12/15/23 05:15 Lymphocytes # (Manual) Not Reportable 12/15/23 05:15 Monocytes # (Manual) Not Reportable 12/15/23 05:15 Eosinophils # (Manual) Not Reportable 12/15/23 05:15 Basophils # (Manual) Not Reportable 12/15/23 05:15 Differential Comment MANUAL=AUTO DIFF 12/15/23 05:15 Platelet Estimate INCREASED (>450,000) (NORMAL) 12/15/23 05:15 Platelet Morphology RARE GIANT (NORMAL) 12/15/23 05:15 RBC Morph Micro Appear NORMAL APPEARANCE (NORMAL) 12/15/23 05:15 PT 28.3 secs (9.9-12.6) H 12/15/23 18:55 INR 2.7 (0.8-1.2) H 12/15/23 18:55 APTT 38.4 secs (24.9-33.3) H 12/15/23 18:55 Bld Gas Analysis Time 0730 12/15/23 07:30 Sample Site RIGHT RADIAL 12/15/23 07:30 ABG pH 7.25 (7.35-7.45) L 12/15/23 07:30 ABG pCO2 33 mmHg (34-45) L 12/15/23 07:30 ABG pO2 53 mmHg (80-100) L 12/15/23 07:30 ABG HCO3 13.8 mmol/L (22.0-26.0) L 12/15/23 07:30 ABG Total CO2 14.8 MMOL/L (21.0-29.0) L 12/15/23 07:30 ABG O2 Saturation 82 % (94-98) L* 12/15/23 07:30 ABG Base Excess -12.3 mmol/L (-2.0-3.0) L 12/15/23 07:30 Isma Test POSITIVE 12/15/23 07:30 VBG pH 7.206 (7.31-7.41) L 12/15/23 18:55 Ionized Calcium 1.07 mmol/L (1.15-1.33) L 12/15/23 18:55 Respiration Rate 16 b/min 12/15/23 07:30 O2 Delivery Device MECH VENT 12/15/23 07:30 Vent Mode ASSIST/CONTROL 12/15/23 07:30 FiO2 100.00 12/15/23 07:30 Tidal Volume 450 mL 12/15/23 07:30 PEEP 15 cmH2O 12/15/23 07:30 Sodium 138 mmol/L (135-145) 12/15/23 18:55 Potassium 5.1 mmol/L (3.5-4.5) H 12/15/23 18:55 Chloride 110 mmol/L (101-111) 12/15/23 18:55 Carbon Dioxide 18 mmol/L (21-32) L 12/15/23 18:55 Anion Gap 10.0 (6-13) 12/15/23 18:55 BUN 49 mg/dL (6-20) H 12/15/23 18:55 Creatinine 2.3 mg/dL (0.6-1.3) H 12/15/23 18:55 Estimated GFR (MDRD) 28 (>89) L 12/15/23 18:55 Glucose 96 mg/dL (74-104) 12/15/23 18:55 Lactic Acid 2.1 mmol/L (0.5-2.2) 12/15/23 16:54 Calcium 8.0 mg/dL (8.5-10.3) L 12/15/23 18:55 Phosphorus 7.4 mg/dL (2.5-5.0) H 12/15/23 15:30 Magnesium 2.2 mg/dL (1.7-2.3) 12/15/23 18:55 Total Bilirubin 0.5 mg/dL (0.2-1.0) 12/15/23 05:15 AST 686 IU/L (10-42) H 12/15/23 05:15 ALT 596 IU/L (10-60) H 12/15/23 05:15 Alkaline Phosphatase 159 IU/L (42-121) H 12/15/23 05:15 Troponin I High Sens 6430.1 ng/L (2.3-19.7) H* 12/15/23 16:54 Total Protein 5.1 g/dL (6.4-8.9) L 12/15/23 05:15 Albumin 2.6 g/dL (3.2-5.5) L 12/15/23 05:15 Globulin 2.5 g/dL (2.1-4.2) 12/15/23 05:15 Albumin/Globulin Ratio 1.0 (1.0-2.2) 12/15/23 05:15 Lipase < 10 U/L (11-82) L 12/14/23 16:35 Urine Color YELLOW 12/14/23 16:28 Urine Clarity HAZY (CLEAR) 12/14/23 16:28 Urine pH 5.5 PH (5.0-7.5) 12/14/23 16:28 Ur Specific [place] 1.025 (1.002-1.030) 12/14/23 16:28 Urine Protein 30 mg/dL (NEGATIVE) H 12/14/23 16:28 Urine Glucose (UA) NEGATIVE mg/dL (NEGATIVE) 12/14/23 16:28 Urine Ketones NEGATIVE mg/dL (NEGATIVE) 12/14/23 16:28 Urine Occult Blood NEGATIVE (NEGATIVE) 12/14/23 16:28 Urine Nitrite NEGATIVE (NEGATIVE) 12/14/23 16:28 Urine Bilirubin SMALL (NEGATIVE) H 12/14/23 16:28 Urine Urobilinogen 1 (NORMAL) E.U./dL (NORMAL) 12/14/23 16:28 Ur Leukocyte Esterase NEGATIVE (NEGATIVE) 12/14/23 16:28 Urine RBC 0-5 /HPF (0-5) 12/14/23 16:28 Urine WBC 0-3 /HPF (0-3) 12/14/23 16:28 Ur Squamous Epith Cells MOD Squamous (<= Few) H 12/14/23 16:28 Urine Bacteria Few /HPF (None Seen) 12/14/23 16:28 Ur Microscopic Review INDICATED 12/14/23 16:28 Urine Culture Comments NOT INDICATED 12/14/23 16:28 Nasal Adenovirus (PCR) NOT DETECTED 12/14/23 17:47 Nasal B. parapertussis DNA (PCR) NOT DETECTED 12/14/23 17:47 Nasal Coronavir 229E PCR NOT DETECTED 12/14/23 17:47 Nasal Coronavir HKU1 PCR NOT DETECTED 12/14/23 17:47 Nasal Coronavir NL63 PCR NOT DETECTED 12/14/23 17:47 Nasal Coronavir OC43 PCR NOT DETECTED 12/14/23 17:47 Nasal Enterovir/Rhinovir PCR NOT DETECTED 12/14/23 17:47 Nasal Influenza B PCR NOT DETECTED 12/14/23 17:47 Nasal Influenza A PCR NOT DETECTED 12/14/23 17:47 Nasal Parainfluen 1 PCR NOT DETECTED 12/14/23 17:47 Nasal Parainfluen 2 PCR NOT DETECTED 12/14/23 17:47 Nasal Parainfluen 3 PCR NOT DETECTED 12/14/23 17:47 Nasal Parainfluen 4 PCR NOT DETECTED 12/14/23 17:47 Nasal RSV (PCR) NOT DETECTED 12/14/23 17:47 Nasal Screen MRSA (PCR) POSITIVE (NEGATIVE) A* 12/14/23 22:50 Nasal B.pertussis DNA PCR NOT DETECTED 12/14/23 17:47 Nasal C.pneumoniae (PCR) NOT DETECTED 12/14/23 17:47 Rajinder Human Metapneumo PCR NOT DETECTED 12/14/23 17:47 Nasal M.pneumoniae (PCR) NOT DETECTED 12/14/23 17:47 Nasal SARS-CoV-2 (PCR) NOT DETECTED 12/14/23 17:47 Sepsis Event Note (H) - Evaluation Current Stage of Sepsis: Sepsis Possible source of Sepsis: positive: Pulmonary
[2023-12-15 23:53] LABS: CALCIUM, IONIZED 1.11 mmol/L (1.15-1.33); VBG PH 7.203 (7.31-7.41)
[2023-12-16] MEDS: CALCIUM GLUC 1,000MG/50ML-NACL 1,000 MG/50 ML BAG IV ONE ×2 (00:42→06:05)
[2023-12-16 03:53] LABS: ABG BASE EXCESS -13.4 mmol/L (-2.0-3.0); ABG HCO3 13.3 mmol/L (22.0-26.0); ABG OXYGEN SATURATION 95 % (94-98); ABG PCO2 34 mmHg (34-45); ABG PH 7.21 (7.35-7.45); ABG PO2 87 mmHg (80-100); ABG TCO2 14.4 MMOL/L (21.0-29.0)
[2023-12-16 03:54] LABS: ABG MODE OF VENTILATION ASSIST/CONTROL; ABG RESPIRATORY RATE 16 b/min; ALLEN TEST POSITIVE
[2023-12-16 05:26] LABS: CALCIUM, IONIZED 1.07 mmol/L (1.15-1.33); VBG PH 7.202 (7.31-7.41)
[2023-12-16 05:27] LABS: BASOPHILS % (AUTO) 0.2 %; HCT - HEMATOCRIT 37.8 % (42.0-52.0); HGB - HEMOGLOBIN 11.8 g/dL (14.0-18.0); LYMPHOCYTES % (AUTO) 3.4 %; MEAN CORPUSCULAR HEMOGLOBIN 28.7 pg (27.0-31.0); MEAN CORPUSCULAR HGB CONC 31.2 g/dL (32.0-36.0); MEAN PLATELET VOLUME 9.8 fL (7.4-11.4); MONOCYTES % (AUTO) 4.4 %; NEUTROPHILS % (AUTO) 89.5 %; PLT - PLATELET COUNT 319 10^3/uL (130-450); RED BLOOD COUNT 4.11 10^6/uL (4.70-6.10); RED CELL DISTRIBUTION WIDTH 15.1 % (12.0-15.0)
[2023-12-16 05:37] LABS: WHITE BLOOD COUNT 36.2 x10^3/uL (4.8-10.8)
[2023-12-16 05:38] LABS: ABNORMAL LYMPHS % (MANUAL) 0 %
[2023-12-16 05:46] LABS: PARTIAL THROMBOPLASTIN TIME 36.2 secs (24.9-33.3)
[2023-12-16 05:50] LABS: INR 2.5 (0.8-1.2); PT - PROTHROMBIN TIME 25.8 secs (9.9-12.6)
[2023-12-16 05:56] LABS: ALBUMIN 2.5 g/dL (3.2-5.5); ALBUMIN/GLOBULIN RATIO 0.9 (1.0-2.2); BILIRUBIN,TOTAL 0.8 mg/dL (0.2-1.0); CALCIUM 7.9 mg/dL (8.5-10.3); POTASSIUM 5.1 mmol/L (3.5-4.5); TOTAL PROTEIN 5.2 g/dL (6.4-8.9)
[2023-12-16 06:03] LABS: MAGNESIUM 2.1 mg/dL (1.7-2.3); PHOSPHORUS 7.4 mg/dL (2.5-5.0)
[2023-12-16] MEDS ORDERED: SODIUM CHLORIDE 0.9% MINIBAG 100 ML IV ONE ×2 (06:11)
[2023-12-16 06:37] LABS: BAND NEUTROPHILS % (MANUAL) 4 %; LYMPHOCYTES # (MANUAL) 1.4 10^3/uL (1.5-3.5); LYMPHOCYTES % (MANUAL) 4 %; METAMYELOCYTES % (MANUAL) 1 %; MONOCYTES # (MANUAL) 1.8 10^3/uL (0.0-1.0); MYELOCYTES % (MANUAL) 1 %; NEUTROPHILS # (MANUAL) 32.2 10^3/uL (1.5-6.6)
[2023-12-16 06:38] LABS: DIFFERENTIAL COMMENT MANUAL DIFFERENTIAL; PLATELET ESTIMATE, MANUAL NORMAL (130-450,000) (NORMAL); RBC MORPHOLOGY (MULTIPLE) NORMAL APPEARANCE (NORMAL)
[2023-12-16] MEDS: ACETAMINOPHEN 325 MG TABLET PO PRN (07:39)
[2023-12-16 08:28] VITALS: O2SAT 97
[2023-12-16 09:12] VITALS: BP 87/62
[2023-12-16] MEDS ORDERED: haloperidoL 1 MG TABLET PO PRN (09:26)
[2023-12-16] MEDS: LORazepam 2 MG/ML VIAL IVP PRN (09:37)
[2023-12-16] MEDS: MORPHINE 2 MG/ML CARPUJECT IVP PRN (09:38)
[2023-12-16] MEDS: GLYCOPYRROLATE 1 MG/5 ML VIAL SUBQ PRN (09:46)
--- NOTE | 2023-12-16 10:34 | DISCHARGE SUMMARY ---
Discharge Summary Admit Date: 12/15/23 Discharge Date: 12/16/23 Discharge Disposition: 20 - HOSPITAL COURSE Hospital Course: Patient is a 68-year-old male who presented to the ED in acute respite distress. He was intubated in the ED and admitted to the ICU. Upon admission patient was noted to be in ARDS with multiorgan dysfunction as well as ACS. She is placed on IV pressors with Levophed and started on broad-spectrum antibiotics with vancomycin, Zosyn, and doxycycline. Family was contacted in regards to his poor medical prognosis and advanced care planning. Patient's brother stated that he was a DNR. Patient was extubated and placed on comfort cares per his brother's wishes on 12/15. He shortly after. Cause of was severe sepsis with multiorgan dysfunction and acute coronary disease. - ALLERGIES Allergies/Adverse Reactions: Allergies Allergy/AdvReac Type Severity Reaction Status Date / Time No Known Drug Allergies Allergy Verified 12/14/23 16:34 - MEDICATIONS Home Medications: Ambulatory Orders Medication Instructions Recorded Confirmed Timolol 0.5% Ophth Drops [Timoptic 1 drops OPTH BID 12/22/13 01/13/14 0.5% Ophth Drops] Ca Cmb No.1/Vit D3/B-6/FA/B12 3 tab PO DAILY 02/24/14 02/24/14 [Vitamin D3 1,000 Unit Tablet] Primapexole 12/23/15 Ciprofloxacin [Cipro] 250 mg PO Q12H #10 tablet 12/11/22 HYDROcod/ACETAM 5/325 [Boyd 5/325] 1 - 2 tab PO Q6H PRN #10 tablet 12/11/22 - LABS Result Diagrams: 12/16/23 05:16 12/16/23 05:16 - SEPSIS Current Stage of Sepsis: Sepsis Possible source of Sepsis: Pulmonary
[2023-12-16] MEDS ORDERED: VANCOMYCIN INJ 1 GM in SODIUM CHLORIDE 0.9% 250 ML IV SCH (14:00)
--- NOTE | 2023-12-16 18:24 | XRAY Report ---
PROCEDURE: Chest 1V INDICATIONS: Intubated patient with pneumonia TECHNIQUE: One view of the chest was acquired. COMPARISON: 12/14/2023. FINDINGS: Surgical changes and devices: ET tube tip is approximately 3.5 cm above the tracey. NG tube tip is b elow the left hemidiaphragm and is in the expected location of stomach lumen. Right internal jugular central venous catheter tip is in SVC.. Lungs and pleura: There are ill-defined airspace opacities seen in bilateral lower lung caicedo. Smal l right pleural effusion is also seen. No pneumothorax. Pulmonary vascular congestion is noted. Mediastinum: Mediastinal contours appear normal. Heart size is normal. Bones and chest wall: No suspicious bony lesions. Overlying soft tissues appear unremarkable. IMPRESSION: Pulmonary vascular congestion and suggestion of small right pleural effusion and bibasilar small infi ltrates/atelectasis. No pneumothorax. Reviewed by: Eric Kimball MD on 12/16/2023 6:23 PM PDT Approved by: Eric Kimball MD on 12/16/2023 6:23 PM PDT Station ID: [id number]
[2023-12-17] MEDS ORDERED: levoFLOXacin 750 MG/150 ML 750 MG/150 ML BAG IV SCH (06:00)
== END 2023-12-16 10:27 | disposition expired | DRG 871 ==
LOC: EDUNIT# → ED 16:13 → ICU 20:54
PROVIDERS: ADMIT Internal Medicine; ATTEND Internal Medicine
PROC: 02HV33Z Insertion of Infusion Device into Superior Vena Cava, Percutaneous Approach (ICD-10-PCS; principal; 2023-12-14)
PROC: 5A1945Z Respiratory Ventilation, 24-96 Consecutive Hours (ICD-10-PCS; 2023-12-14)
DX: A41.9 Sepsis, unspecified organism (principal); I21.4 Non-ST elevation (NSTEMI) myocardial infarction; J69.0 Pneumonitis due to inhalation of food and vomit; J96.01 Acute respiratory failure with hypoxia; R65.21 Severe sepsis with septic shock; I24.9 Acute ischemic heart disease, unspecified; G82.20 Paraplegia, unspecified; N17.9 Acute kidney failure, unspecified; J44.0 Chronic obstructive pulmonary disease with (acute) lower respiratory infection; E46 Unspecified protein-calorie malnutrition; Z68.1 Body mass index [BMI] 19.9 or less, adult; F17.200 Nicotine dependence, unspecified, uncomplicated; G35 Multiple sclerosis; H40.9 Unspecified glaucoma; Z51.5 Encounter for palliative care; Z66 Do not resuscitate; Z79.899 Other long term (current) drug therapy; Z99.3 Dependence on wheelchair
CPT/HCPCS: 36415; 36556; 36600; 51702; 71045; 80048; 80053; 81001; 82330; 82803; 83605; 83690; 83735; 84100; 84484; 85025; 85027; 85610; 85730; 87040; 87150; 87633; 93005; 93307; 94002; 94003; 94640; 96365; 96366; 96375; 99291; A9270; J1650; J2060; 80202; 81003; 87086